=== PATIENT | male | born 1970 | race Caucasian/White ===

== ENCOUNTER 2017-09-02 03:16 | Observation (INO) | payer MEDICAID ==
--- NOTE | 2017-09-02 03:48 | EDPHY ---
H & P Stated Complaint: cirrhosis, Time Seen by Provider: 09/02/17 03:39 HPI/ROS: Chief Complaint: Abdominal pain, distension, shortness of breath HPI: 47-year-old male arrived in [place] yesterday afternoon. He states that he is in the process of moving here from [place]. He was diagnosed with end- stage liver disease secondary to cirrhosis about 3 months ago. He has moved here to live with his parents. His mother has arranged for him to see a liver specialist in [place] next week. He woke up this morning with worsening abdominal distension and pain and shortness of breath similar to prior episodes. He says that home in [place] he was getting a therapeutic paracentesis about every 3 days. He has not arranged for any local care other then follow up with a liver specialist in [place]. He does not know where that is or the name of the doctor. He denies any fevers or chills. He does have a mild cough. No chest pain. No nausea or vomiting. ROS: 10 point Review of Systems is negative except as noted in the HPI. PMH: End-stage liver disease Social History: No smoking, no alcohol Family History: non-contributory Physical Exam: Gen: Awake, Alert, No Distress HEENT: Nose: no rhinorrhea Eyes: PERRLA, EOMI Mouth: Moist mucosa Neck: Supple, no JVD Chest: nontender, lungs clear to auscultation Heart: S1, S2 normal, no murmur Abd: Soft, distended, ascitic, moderate diffuse tenderness, no guarding Back: no CVA tenderness, no midline tenderness Ext: no edema, non-tender Skin: no rash Neuro: CN II-XII intact, Sensation grossly intact, Strength 5/5 in bilateral upper and lower extremities - Medical/Surgical History Hx Asthma: No Hx Chronic Respiratory Disease: No Hx Diabetes: No Hx Cardiac Disease: No Hx Renal Disease: No Hx Cirrhosis: Yes Hx Alcoholism: Yes Hx HIV/AIDS: No Hx Splenectomy or Spleen Trauma: No Other PMH: cirrhosis - Social History Smoking Status: Never smoked Constitutional: Initial Vital Signs Temperature (C) 36.9 C 09/02/17 03:19 Heart Rate 90 09/02/17 03:19 Respiratory Rate 24 H 09/02/17 03:19 Blood Pressure 104/62 09/02/17 03:19 O2 Sat (%) 97 09/02/17 03:19 O2 Delivery Mode Room Air Allergies/Adverse Reactions: No Known Allergies Allergy (Unverified 09/02/17 03:18) Home Medications: Medication Instructions Recorded Cipro 09/02/17 LACTULOSE 09/02/17 Medical Decision Making - Data Points Laboratory Results: Laboratory Results 09/02/17 03:35 09/02/17 03:35 09/02/17 09/02/17 09/02/17 03:35 03:35 03:35 WBC 7.73 10^3/uL 10^3/uL (3.80-9.50) RBC 2.45 10^6/uL L 10^6/uL (4.40-6.38) Hgb 7.4 g/dL L g/dL (13.7-17.5) Hct 22.2 % L % (40.0-51.0) MCV 90.6 fL fL (81.5-99.8) MCH 30.2 pg pg (27.9-34.1) MCHC 33.3 g/dL g/dL (32.4-36.7) RDW 20.8 % H % (11.5-15.2) Plt Count 141 10^3/uL L 10^3/uL (150-400) MPV 10.5 fL fL (8.7-11.7) Neut % (Auto) 54.3 % % (39.3-74.2) Lymph % (Auto) 25.1 % % (15.0-45.0) [place] % (Auto) 15.8 % H % (4.5-13.0) Eos % (Auto) 2.8 % % (0.6-7.6) Baso % (Auto) 0.8 % % (0.3-1.7) Nucleat RBC Rel Count 0.0 % % (0.0-0.2) Absolute Neuts (auto) 4.20 10^3/uL 10^3/uL (1.70-6.50) Absolute Lymphs (auto) 1.94 10^3/uL 10^3/uL (1.00-3.00) Absolute Monos (auto) 1.22 10^3/uL H 10^3/uL (0.30-0.80) Absolute Eos (auto) 0.22 10^3/uL 10^3/uL (0.03-0.40) Absolute Basos (auto) 0.06 10^3/uL 10^3/uL (0.02-0.10) Absolute Nucleated RBC 0.00 10^3/uL 10^3/uL (0-0.01) Immature Gran % 1.2 % H % (0.0-1.1) Immature Gran # 0.09 10^3/uL 10^3/uL (0.00-0.10) Platelet Estimate DECREASED L (ADEQ) Hypochromasia 1+ H Target Cells 1+ H Oval Macrocytes 3+ H PT 20.2 SEC H SEC (12.0-15.0) INR 1.71 H (0.83-1.16) APTT 40.1 SEC H SEC (23.0-38.0) Sodium 128 mEq/L L mEq/L (135-145) Potassium 4.2 mEq/L mEq/L (3.3-5.0) Chloride 97 mEq/L mEq/L (97-110) Carbon Dioxide 24 mEq/l mEq/l (22-31) Anion Gap 7 mEq/L L mEq/L (8-16) BUN 31 mg/dL H mg/dL (7-23) Creatinine 1.7 mg/dL H mg/dL (0.7-1.3) Estimated GFR 44 Glucose 112 mg/dL H mg/dL (70-100) Calcium 7.7 mg/dL L mg/dL (8.5-10.4) Total Bilirubin 3.9 mg/dL H mg/dL (0.1-1.4) Conjugated Bilirubin 2.8 mg/dL H mg/dL (0.0-0.5) Unconjugated Bilirubin 1.1 mg/dL mg/dL (0.0-1.1) AST 101 IU/L H IU/L (17-59) ALT 58 IU/L IU/L (21-72) Alkaline Phosphatase 248 IU/L H IU/L (38-126) Total Protein 5.9 g/dL L g/dL (6.3-8.2) Albumin 2.7 g/dL L g/dL (3.5-5.0) Lipase 452 IU/L H IU/L (23-300) Departure - Departure Disposition: [facility] Acute Clinical Impression: Ascites, End stage liver disease, Anemia, Renal insufficiency Condition: Fair
[2017-09-02 04:34] LABS: INR 1.71 (0.83-1.16); PROTIME(PATIENT) 20.2 SEC (12.0-15.0)
[2017-09-02 04:38] LABS: PLATELET COUNT 141 10^3/uL (150-400)
[2017-09-02] MEDS ORDERED: ONDANSETRON 4 MG/2 ML VIAL IVP PRN (05:24)
[2017-09-02] MEDS ORDERED: ACETAMINOPHEN 325 MG TAB PO PRN (05:24)
[2017-09-02] MEDS ORDERED: ONDANSETRON DISINTEGRATING 4 MG TAB PO PRN (05:24)
--- NOTE | 2017-09-02 06:20 | PDGENHP ---
History and Physical - Chief Complaint Ascites - History of Present Illness 47 yo M w/ hx of alcoholic cirrhosis presents with large volume ascites. The patient arrived in [place] from [place] last night. He went home and ate a frozen pizza. At around 3 AM he noted discomfort from large volume ascites so he came to the ED. The patient is a very poor historian and is unable to tell me many of the details of his medical history. He does, however, have excellent records with him and I will attempt to summarize those below. Per D/C summary dated 08/28/17 from [facility]: - Patient last admitted there from 08/18 through 08/28. He was treated for recurrent ascites, DARRIUS, hyponatremia, and LLE cellulitis. He also underwent a full transplant evaluation including: - Nutrition counseling (claims he is following a low sodium diet) - R/L heart cath that were essentially normal aside from mildly elevated filling pressures - TTE showing hyperdynamic LV - RUQ U/S w/ cirrhosis but no evidence of mass - Negative for Hep A/B/C, HIV, CMV/EBV, VZV, LUZ MARINA, SMA, Qant, MMR, RPR - AFP WNL Despite this encouraging work-up the patient was denied transplant listing due to psychosocial reasons (poor social support in [place] and last drink ~6 weeks ago). At the time of discharge his MELD-Na score was 30. Of note, his diuretics are being held due to DARRIUS. He is moving to [place] to live with his parents in [place] and hopefully establish care with [facility] hepatology service. Case discussed with ED physician Dr. Cabrera. History Information - Allergies/Home Medication List Allergies/Adverse Reactions: No Known Allergies Allergy (Unverified 09/02/17 03:18) Home Medications: Cipro 09/02/17 [Last Taken Unknown] LACTULOSE 09/02/17 [Last Taken Unknown] I have personally reviewed and updated: family history, medical history - Past Medical History Additional medical history: ETOH cirrhosis - Surgical History Reports: no pertinent surgical hx - Family History Positive for: cancer - Social History Smoking Status: Never smoked Review of Systems Review of Systems: ROS: 10pt was reviewed & negative except for what was stated in HPI & below Physical Exam Physical Exam: Temp Pulse Resp BP Pulse Ox 36.9 C 83 19 124/78 H 96 09/02/17 03:19 09/02/17 05:37 09/02/17 05:37 09/02/17 05:37 09/02/17 05:37 Constitutional: no apparent distress, obese Eyes: PERRL, EOMI Ears, Nose, Mouth, Throat: moist mucous membranes, no oral mucosal ulcers Cardiovascular: regular rate and rhythym, no murmur, rub, or gallop, edema (3+ b /l JANELLE to upper shins) Respiratory: no respiratory distress, clear to auscultation Gastrointestinal: normoactive bowel sounds, ascites, distension, No tenderness Skin: warm, normal color Musculoskeletal: full muscle strength, no muscle tenderness Neurologic: AAOx3, CN II-XII Intact Psychiatric: interacting appropriately, not anxious Lab Data & Imaging Review 09/02/17 03:35 09/02/17 03:35 WBC 7.73 10^3/uL (3.80-9.50) 09/02/17 03:35 RBC 2.45 10^6/uL (4.40-6.38) L 09/02/17 03:35 Hgb 7.4 g/dL (13.7-17.5) L 09/02/17 03:35 Hct 22.2 % (40.0-51.0) L 09/02/17 03:35 MCV 90.6 fL (81.5-99.8) 09/02/17 03:35 MCH 30.2 pg (27.9-34.1) 09/02/17 03:35 MCHC 33.3 g/dL (32.4-36.7) 09/02/17 03:35 RDW 20.8 % (11.5-15.2) H 09/02/17 03:35 Plt Count 141 10^3/uL (150-400) L 09/02/17 03:35 MPV 10.5 fL (8.7-11.7) 09/02/17 03:35 Neut % (Auto) 54.3 % (39.3-74.2) 09/02/17 03:35 Lymph % (Auto) 25.1 % (15.0-45.0) 09/02/17 03:35 [place] % (Auto) 15.8 % (4.5-13.0) H 09/02/17 03:35 Eos % (Auto) 2.8 % (0.6-7.6) 09/02/17 03:35 Baso % (Auto) 0.8 % (0.3-1.7) 09/02/17 03:35 Nucleat RBC Rel Count 0.0 % (0.0-0.2) 09/02/17 03:35 Absolute Neuts (auto) 4.20 10^3/uL (1.70-6.50) 09/02/17 03:35 Absolute Lymphs (auto) 1.94 10^3/uL (1.00-3.00) 09/02/17 03:35 Absolute Monos (auto) 1.22 10^3/uL (0.30-0.80) H 09/02/17 03:35 Absolute Eos (auto) 0.22 10^3/uL (0.03-0.40) 09/02/17 03:35 Absolute Basos (auto) 0.06 10^3/uL (0.02-0.10) 09/02/17 03:35 Absolute Nucleated RBC 0.00 10^3/uL (0-0.01) 09/02/17 03:35 Immature Gran % 1.2 % (0.0-1.1) H 09/02/17 03:35 Immature Gran # 0.09 10^3/uL (0.00-0.10) 09/02/17 03:35 Platelet Estimate DECREASED (ADEQ) L 09/02/17 03:35 Hypochromasia 1+ H 09/02/17 03:35 Target Cells 1+ H 09/02/17 03:35 Oval Macrocytes 3+ H 09/02/17 03:35 PT 20.2 SEC (12.0-15.0) H 09/02/17 03:35 INR 1.71 (0.83-1.16) H 09/02/17 03:35 APTT 40.1 SEC (23.0-38.0) H 09/02/17 03:35 Sodium 128 mEq/L (135-145) L 09/02/17 03:35 Potassium 4.2 mEq/L (3.3-5.0) 09/02/17 03:35 Chloride 97 mEq/L (97-110) 09/02/17 03:35 Carbon Dioxide 24 mEq/l (22-31) 09/02/17 03:35 Anion Gap 7 mEq/L (8-16) L 09/02/17 03:35 BUN 31 mg/dL (7-23) H 09/02/17 03:35 Creatinine 1.7 mg/dL (0.7-1.3) H 09/02/17 03:35 Estimated GFR 44 09/02/17 03:35 Glucose 112 mg/dL (70-100) H 09/02/17 03:35 Calcium 7.7 mg/dL (8.5-10.4) L 09/02/17 03:35 Total Bilirubin 3.9 mg/dL (0.1-1.4) H 09/02/17 03:35 Conjugated Bilirubin 2.8 mg/dL (0.0-0.5) H 09/02/17 03:35 Unconjugated Bilirubin 1.1 mg/dL (0.0-1.1) 09/02/17 03:35 AST 101 IU/L (17-59) H 09/02/17 03:35 ALT 58 IU/L (21-72) 09/02/17 03:35 Alkaline Phosphatase 248 IU/L (38-126) H 09/02/17 03:35 Total Protein 5.9 g/dL (6.3-8.2) L 09/02/17 03:35 Albumin 2.7 g/dL (3.5-5.0) L 09/02/17 03:35 Lipase 452 IU/L (23-300) H 09/02/17 03:35 Assessment & Plan Assessment: 47 yo M w/ alcoholic cirrhosis presents with large volume ascites. Plan: 1. Acutely decompensated alcoholic cirrhosis - Decompensated per large volume ascites. Patient has required at least 4 large volume paracenteses over the last month. The situation is exacerbated by his diuretics being held in the setting of ongoing DARRIUS. He completed transplant evaluation in [place] but was denied due to psychosocial reasons and the complicating factor of him being a [employer]'s witness. He arrived in [place] on the day prior to admission in order to hopefully establish care with [facility] hepatology. His MELD-Na today is 28 compared to 30 at on 08/28 at time of discharge in [place]. From this standpoint his liver dysfunction is stable. - Will order therapeutic paracentesis for this morning - Recent RUQ U/S without evidence of mass, latest AFP negative - Needs EGD for variceal screening in the future - Will continue Ciprofloxacin for SBP prophylaxis noting very high risk ( decompensated cirrhosis, recurrent paracentesis, DARRIUS) - Continue lactulose; not currently on Rifaximin. Per records patient has no hx of HE so will not start now 2. DARRIUS - Creatinine 1.7 on admission, this is increased from his reported baseline value of 1. At time of discharge in [place] on 08/28, however, his serum Cr was 1.6. The relative stability of this makes HRS (at least Type I) unlikely. I suspect he is intravascularly volume deplete noting large volume in abdomen. - Will need aggressive albumin after paracentesis - Avoid nephrotoxins, renally dose medications - Continue to hold diuretics in the short term 3. Anemia - Suspect largely driven by his liver disease and poor nutritional status. The patient is a Jehova's witness and will not accept blood products. - Monitor CBC 4. Hyponatremia - Likely hypervolemic and driven by liver disease. 5. Thrombocytopenia - 2/2 portal HTN. Avoid blood thinners. 6. Coagulopathy - 2/2 liver disease. 7. Recent LLE cellulitis - Finished course of Keflex and doxycycline on 08.29; no evidence of active infection currently. Diet - NPO pending para to avoid worsening abdominal discomfort Code - Full Ppx - SCDs Dispo - Admit under observation status
[2017-09-02] MEDS: CIPROFLOXACIN 500 MG TAB PO SCH (08:32)
[2017-09-02] MEDS: LACTULOSE 20 GM/30 ML UDCUP PO SCH ×3 (08:32→22:51)
[2017-09-02] MEDS ORDERED: ALBUMIN 25% 200 ML IV ONE ×2 (11:11→14:30)
[2017-09-02] MEDS: prednisoLONE 15 MG/5 ML ORAL UD LIQ PO SCH (14:43)
[2017-09-02] MEDS: THIAMINE HCL 100 MG TAB PO SCH (14:43)
[2017-09-02] MEDS: PANTOPRAZOLE SODIUM 40 MG TAB PO SCH (14:43)
[2017-09-02] MEDS ORDERED: LIDOCAINE 1% 300 MG/30 ML SDV ONE (15:27)
[2017-09-02] MEDS ORDERED: ALBUMIN 25% 100 ML IV ONE (17:52)
--- NOTE | 2017-09-02 17:52 | PDRADPN ---
Radiology Procedure Note Date of Procedure: 09/02/17 Radiologist: Taylor Goodrich Pre-op Diagnosis: ESLD Post-op Diagnosis: same Indication: large volume ascites Procedure: paracentesis Finding(s): 7.5 L removed. Sent for requested labs. Inf/Abcess present in the surg proc area at time of surgery?: No
[2017-09-02] MEDS ORDERED: TEMAZEPAM 15 MG CAP PO ONE (20:20)
[2017-09-03] MEDS: THIAMINE HCL 100 MG TAB PO SCH (08:49)
[2017-09-03] MEDS: prednisoLONE 15 MG/5 ML ORAL UD LIQ PO SCH (08:50)
[2017-09-03] MEDS: CIPROFLOXACIN 500 MG TAB PO SCH (08:50)
[2017-09-03] MEDS: PANTOPRAZOLE SODIUM 40 MG TAB PO SCH (08:50)
--- NOTE | 2017-09-03 09:56 | HOSPPROG ---
Hospitalist Progress Note Assessment/Plan: 47 yo M w cirrhosis, ascites s/p paracentesis home today see dc summary Subjective: s/p thpracentesis Objective: Vital Signs Temp Pulse Resp BP Pulse Ox 36.6 C 89 17 113/67 94 09/03/17 07:22 09/03/17 07:22 09/03/17 07:22 09/03/17 07:22 09/03/17 07:22 Microbiology 09/02/17 17:10 Gram Stain - Final Peritoneal Fluid - Aspirate Laboratory Results 09/03/17 05:00 09/02/17 09/03/17 09/04/17 05:59 05:59 05:59 Intake Total 950 320 Balance 950 320 PT 20.2 SEC (12.0-15.0) H 09/02/17 03:35 INR 1.71 (0.83-1.16) H 09/02/17 03:35 - Physical Exam Constitutional: no apparent distress, appears nourished Eyes: PERRL, icteric sclera Ears, Nose, Mouth, Throat: moist mucous membranes, hearing normal Cardiovascular: regular rate and rhythym, no murmur, rub, or gallop Respiratory: no respiratory distress, no rales or rhonchi Gastrointestinal: normoactive bowel sounds, soft, non-tender abdomen, ascites Genitourinary: no bladder fullness Skin: warm, normal color Musculoskeletal: full muscle strength Neurologic: AAOx3 ICD10 Worksheet Patient Problems: Problems Problem Status Onset Anemia Acute Ascites Acute End stage liver disease Acute Renal insufficiency Acute
--- NOTE | 2017-09-03 10:58 | GDS ---
[f rep st] DISCHARGE SUMMARY DISCHARGE DIAGNOSES: 1. Cirrhosis with ascites. 2. Alcoholism. 3. Chronic kidney injury, now resolved. 4. Anemia. 5. Religion. HOSPITAL COURSE: Please see admission history and physical by Dr. Artemio Serrato. Patient pre sented with increasing ascites and difficulty breathing. He underwent the paracentesis. 7.5 L were removed. Labs were consistent with cirrhosis without evidence of SBP. The patient was given albumin with subsequent improvement in his creatinine. He was discharged on Lasix, spironolactone, as well as continuation of prednisolone, omeprazole, iron, and lactulose. He was not encephalopathic while h ere. The patient previously been seen by the [facility] liver transplant team. The details gunnar t workup are nicely summarized by Dr. Artemio Serrato's evaluation. /[id number]/MODL
[2017-09-03 11:15] VITALS: BP 113/66
--- NOTE | 2017-09-03 11:41 | ASMTCMCOM ---
CM Note CM Note Notes: Pt to Dc today. Pt presented with ascites and underwent paracentesis. Per Dr Ulloa's repot, pt denied liver transplant listing in [place] for psychosocial reasons, among them poor support system. Pt has moved to [place] to live ith parents and hopefully establish care at [facility]. Pt given support packet for alcohol cessation resources in the area. No DC needs. Date Signed: 09/03/2017 11:41 AM Electronically Signed By:Reyna Mccoy LCSW
--- NOTE | 2017-09-03 11:47 | ASMTCMCOM ---
CM Note CM Note Notes: Pt ready for DC today. Patient admitted with aspiration PNA. He has a complex medical history notable fo CVAs w residual L sided weakness. SPoke with Kyung yesterday about DC plan. She has told by MD about the danger of further aspiration PNA if he continues to eat. She feels that food intake helps his quality of life and that he would decline if only fed through tube. Asked RN to have speech come discuss his diet and best food to eat. Kyung ([phone]) states that patient is well supported at home with 24/7 care. He receives [facility] services through [facility] (this includes home visits from physicians) and unskilled services through Medicaid's HCBS program. His [facility] orthopaedic nurse is Shanika Reyes. Per patient's , she does not need any add'l services at this time. Date Signed: 09/03/2017 11:46 AM Electronically Signed By:Reyna Mccoy LCSW
== END 2017-09-03 13:27 | disposition home or self-care (01) ==
LOC: F1N 06:30
PROVIDERS: ADMIT Student in an Organized Health Care Education/Training Program; ATTEND Student in an Organized Health Care Education/Training Program
PROC: 0W9G3ZZ Drainage of Peritoneal Cavity, Percutaneous Approach (ICD-10-PCS; principal; 2017-09-02)
DX: K70.31 Alcoholic cirrhosis of liver with ascites (principal); E87.1 Hypo-osmolality and hyponatremia; D64.9 Anemia, unspecified; D68.9 Coagulation defect, unspecified; N17.9 Acute kidney failure, unspecified
CPT/HCPCS: 49083; 99285; G0378; J7510; P9047

== ENCOUNTER 2017-09-05 16:55 | Observation (INO) | payer MEDICAID ==
--- NOTE | 2017-09-05 17:45 | EDPHY ---
H & P Stated Complaint: c/o abd bloat/discomfort since last pm, had ascites drained 2 days ago Time Seen by Provider: 09/05/17 17:25 HPI/ROS: CHIEF COMPLAINT: Recurrent ascites HISTORY OF PRESENT ILLNESS: The patient presents to the ED with a rapid accumulation of his ascites following a recent hospitalization and large volume paracentesis. The patient has been bothered by some aphthous type ulcers on his tongue. He has been drinking large volumes of water since his discharge. The patient was evaluated at the transplant service in [place] and apparently has been denied a transplant secondary to ongoing alcohol use and poor social support. He is currently living in [place] with his family. The patient denies any fever. He denies any melena or hematemesis. The patient complains of moderate abdominal pain and distention. REVIEW OF SYSTEMS: A comprehensive 10 point review of systems is otherwise negative aside from elements mentioned in the history of present illness. Source: Patient Exam Limitations: No limitations - Medical/Surgical History Hx Asthma: No Hx Chronic Respiratory Disease: No Hx Diabetes: No Hx Cardiac Disease: No Hx Renal Disease: No Hx Cirrhosis: Yes Hx Alcoholism: Yes Hx HIV/AIDS: No Hx Splenectomy or Spleen Trauma: No Other PMH: cirrhosis, LE cellulitis - Social History Smoking Status: Never smoked - Physical Exam Exam: General Appearance: Alert, no distress Eyes: Pupils equal and round no pallor or injection ENT, Mouth: Mucous membranes moist Respiratory: There are no retractions, lungs are clear to auscultation Cardiovascular: Regular rate and rhythm Gastrointestinal: Protuberant, fluid wave, no peritoneal signs Neurological: A&O, normal motor function, normal sensory exam, normal cranial nerves Skin: Warm and dry, no rashes Musculoskeletal: Neck is supple nontender Extremities: symmetrical, full range of motion Psychiatric: Patient is oriented X 3, there is no agitation Constitutional: Initial Vital Signs Temperature (C) 37 C 09/05/17 16:58 Heart Rate 109 H 09/05/17 16:58 Respiratory Rate 18 09/05/17 16:58 Blood Pressure 135/72 H 09/05/17 16:58 O2 Sat (%) 94 09/05/17 16:58 O2 Delivery Mode Room Air Allergies/Adverse Reactions: No Known Allergies Allergy (Verified 09/05/17 17:05) Home Medications: Medication Instructions Recorded Ciprofloxacin [Cipro] 500 mg PO DAILY 09/02/17 Ferrous Sulfate [Ferrous Sulf 325 325 mg PO DAILY 09/02/17 MG (*)] Folic Acid [Folic Acid 1 MG (*)] 1 mg PO DAILY 09/02/17 Lactulose 10 gm PO PRN PRN 09/02/17 Omeprazole 40 mg PO DAILY PRN 09/02/17 Thiamine HCl 100 mg PO DAILY 09/02/17 Furosemide [Lasix 20 MG (*)] 20 mg PO DAILY #30 tab 09/03/17 Spironolactone 25 mg PO DAILY #30 tablet 09/03/17 Multivitamins [Multivitamin (*)] 1 each PO BID 09/05/17 Medical Decision Making ED Course/Re-evaluation: The patient presents to the ED with recurrent ascites in the setting of excess water intake over the past several days. The patient is afebrile and has no peritoneal signs on exam. He will require admission to the hospital for a repeat paracentesis. CBC and metabolic panel are currently pending. Consultation was made with Dr. Roy from the hospitalist service who will admit the patient. I reviewed the patient's laboratory studies. He has no evidence of a significant leukocytosis, metabolic derangement or recurrent renal failure. The patient will be admitted for observation and therapeutic paracentesis. Differential Diagnosis: Differential diagnosis considered includes SBP, abdominal ascites, renal failure , metabolic derangement - Data Points Laboratory Results: Laboratory Results 09/05/17 17:50 09/05/17 17:50 09/05/17 09/05/17 17:50 17:50 WBC 8.82 10^3/uL 10^3/uL (3.80-9.50) RBC 2.28 10^6/uL L 10^6/uL (4.40-6.38) Hgb 6.8 g/dL L g/dL (13.7-17.5) Hct 20.5 % L % (40.0-51.0) MCV 89.9 fL fL (81.5-99.8) MCH 29.8 pg pg (27.9-34.1) MCHC 33.2 g/dL g/dL (32.4-36.7) RDW 20.4 % H % (11.5-15.2) Plt Count 132 10^3/uL L 10^3/uL (150-400) MPV 10.5 fL fL (8.7-11.7) Neut % (Auto) 56.7 % % (39.3-74.2) Lymph % (Auto) 23.6 % % (15.0-45.0) [place] % (Auto) 15.3 % H % (4.5-13.0) Eos % (Auto) 2.7 % % (0.6-7.6) Baso % (Auto) 0.7 % % (0.3-1.7) Nucleat RBC Rel Count 0.0 % % (0.0-0.2) Absolute Neuts (auto) 5.00 10^3/uL 10^3/uL (1.70-6.50) Absolute Lymphs (auto) 2.08 10^3/uL 10^3/uL (1.00-3.00) Absolute Monos (auto) 1.35 10^3/uL H 10^3/uL (0.30-0.80) Absolute Eos (auto) 0.24 10^3/uL 10^3/uL (0.03-0.40) Absolute Basos (auto) 0.06 10^3/uL 10^3/uL (0.02-0.10) Absolute Nucleated RBC 0.00 10^3/uL 10^3/uL (0-0.01) Immature Gran % 1.0 % % (0.0-1.1) Immature Gran # 0.09 10^3/uL 10^3/uL (0.00-0.10) Platelet Estimate DECREASED L (ADEQ) Polychromasia 1+ H Smear Review By Pending Sodium 136 mEq/L mEq/L (135-145) Potassium 4.6 mEq/L mEq/L (3.3-5.0) Chloride 101 mEq/L mEq/L (97-110) Carbon Dioxide 25 mEq/l mEq/l (22-31) Anion Gap 10 mEq/L mEq/L (8-16) BUN 31 mg/dL H mg/dL (7-23) Creatinine 1.4 mg/dL H mg/dL (0.7-1.3) Estimated GFR 55 Glucose 101 mg/dL H mg/dL (70-100) Calcium 8.0 mg/dL L mg/dL (8.5-10.4) Departure - Departure Disposition: [facility] Acute Clinical Impression: End stage liver disease, Ascites Condition: Good
[2017-09-05 18:02] LABS: PLATELET COUNT 132 10^3/uL (150-400)
--- NOTE | 2017-09-05 18:16 | PDGENHP ---
History and Physical - Chief Complaint Bloating - History of Present Illness 47 yo M w/ hx of alcoholic cirrhosis presents with large volume ascites. Patient was discharged from [facility] on 09/03/17 after undergoing a large volume (7.5L) paracentesis. The patient arrived in [place] from [place] last last week. He was hospitalized 08/18 through 08/28 at [facility] where he was evaluated for liver transplant. Per D/C summary dated 08/28/17 from [facility]: - Patient last admitted there from 08/18 through 08/28. He was treated for recurrent ascites, DARRIUS, hyponatremia, and LLE cellulitis. He also underwent a full transplant evaluation including: - Nutrition counseling (claims he is following a low sodium diet) - R/L heart cath that were essentially normal aside from mildly elevated filling pressures - TTE showing hyperdynamic LV - RUQ U/S w/ cirrhosis but no evidence of mass - Negative for Hep A/B/C, HIV, CMV/EBV, VZV, LUZ MARINA, SMA, Qant, MMR, RPR - AFP WNL Ultimately during his hospital stay at [facility] he was thought to not be a transplant candidate due to his recent history of alcohol use as well as lack of social support in [place]. This is why he has moved back to [place] so he could live with his parents and further pursue liver transplantation. Since discharged from [facility] on 09/03/2017 he reports having painful sores on both sides of his tongue. He has been drinking copious amounts of water. He denies any alcohol use and has been sober for 9 weeks. Over the past 2 days he has had increasing abdominal swelling. He denies any fevers or chills. Abdominal swelling is associated with some shortness of breath. He also reports some leaking from is paracentesis site. History Information - Allergies/Home Medication List Allergies/Adverse Reactions: No Known Allergies Allergy (Verified 09/05/17 17:05) Home Medications: Ciprofloxacin [Cipro] 500 mg PO DAILY 09/02/17 [Last Taken 09/01/17] Ferrous Sulfate [Ferrous Sulf 325 MG (*)] 325 mg PO DAILY 09/02/17 [Last Taken 09/02/17] Folic Acid [Folic Acid 1 MG (*)] 1 mg PO DAILY 09/02/17 [Last Taken 09/02/17] Lactulose 10 gm PO PRN PRN 09/02/17 [Last Taken Unknown] Omeprazole 40 mg PO DAILY 09/02/17 [Last Taken 09/01/17] Thiamine HCl 100 mg PO DAILY 09/02/17 [Last Taken 09/02/17] I have personally reviewed and updated: family history, medical history, social history, surgical history - Past Medical History Additional medical history: ETOH cirrhosis - Surgical History Reports: no pertinent surgical hx - Family History Positive for: cancer - Social History Smoking Status: Never smoked Alcohol Use: Other (Sober for 9 weeks) Review of Systems Review of Systems: ROS: 10pt was reviewed & negative except for what was stated in HPI & below Physical Exam Physical Exam: Temp Pulse Resp BP Pulse Ox 37 C 109 H 18 135/72 H 94 09/05/17 16:58 09/05/17 16:58 09/05/17 16:58 09/05/17 16:58 09/05/17 16:58 Constitutional: no apparent distress, appears nourished, not in pain, chronically ill appearing Eyes: PERRL, EOMI, icteric sclera Ears, Nose, Mouth, Throat: moist mucous membranes, hearing normal, ears appear normal, no oral mucosal ulcers, other (Ulcers on both lateral aspects of his tongue) Cardiovascular: regular rate and rhythym, no murmur, rub, or gallop, No edema Respiratory: no respiratory distress, no rales or rhonchi, clear to auscultation , reduced air movement (Bilateral bases) Gastrointestinal: normoactive bowel sounds, soft, non-tender abdomen, no palpable masses, ascites, distension Genitourinary: no bladder fullness, no bladder tenderness Skin: warm, other (Mild jaundice) Musculoskeletal: full muscle strength, no muscle tenderness, normal joint ROM, no joint effusions Neurologic: AAOx3, CN II-XII Intact, other (Slight tremor), No facial droop Psychiatric: interacting appropriately, not anxious, not encephalopathic, thought process linear Lymph, Heme, Immunologic: no cervical LAD, no supraclavicular LAD Lab Data & Imaging Review 09/05/17 17:50 09/05/17 17:50 WBC 8.82 10^3/uL (3.80-9.50) 09/05/17 17:50 RBC 2.28 10^6/uL (4.40-6.38) L 09/05/17 17:50 Hgb 6.8 g/dL (13.7-17.5) L 09/05/17 17:50 Hct 20.5 % (40.0-51.0) L 09/05/17 17:50 MCV 89.9 fL (81.5-99.8) 09/05/17 17:50 MCH 29.8 pg (27.9-34.1) 09/05/17 17:50 MCHC 33.2 g/dL (32.4-36.7) 09/05/17 17:50 RDW 20.4 % (11.5-15.2) H 09/05/17 17:50 Plt Count 132 10^3/uL (150-400) L 09/05/17 17:50 MPV 10.5 fL (8.7-11.7) 09/05/17 17:50 Neut % (Auto) 56.7 % (39.3-74.2) 09/05/17 17:50 Lymph % (Auto) 23.6 % (15.0-45.0) 09/05/17 17:50 [place] % (Auto) 15.3 % (4.5-13.0) H 09/05/17 17:50 Eos % (Auto) 2.7 % (0.6-7.6) 09/05/17 17:50 Baso % (Auto) 0.7 % (0.3-1.7) 09/05/17 17:50 Nucleat RBC Rel Count 0.0 % (0.0-0.2) 09/05/17 17:50 Absolute Neuts (auto) 5.00 10^3/uL (1.70-6.50) 09/05/17 17:50 Absolute Lymphs (auto) 2.08 10^3/uL (1.00-3.00) 09/05/17 17:50 Absolute Monos (auto) 1.35 10^3/uL (0.30-0.80) H 09/05/17 17:50 Absolute Eos (auto) 0.24 10^3/uL (0.03-0.40) 09/05/17 17:50 Absolute Basos (auto) 0.06 10^3/uL (0.02-0.10) 09/05/17 17:50 Absolute Nucleated RBC 0.00 10^3/uL (0-0.01) 09/05/17 17:50 Immature Gran % 1.0 % (0.0-1.1) 09/05/17 17:50 Immature Gran # 0.09 10^3/uL (0.00-0.10) 09/05/17 17:50 Assessment & Plan Assessment: This is a 47-year-old male with history of alcohol related end-stage liver disease presenting with: 1. Recurrence Ascites Plan: Will pursue repeat therapeutic paracentesis under ultrasound guidance Low sodium diet Fluid restrict Await chemistry panel 2. End stage liver disease Plan: Encouraged sobriety Outpatient follow-up with Transplant Team 3. Bilateral tongue ulcerations of unclear etiology Plan: Trial Magic mouthwash and consider topical steroids if not improving 4. Worsening normocytic anemia without signs of acute bleeding Plan: Monitor H&H Blood type and screen, defer transfusion given risks for transfusion associated circulatory overload PPI
[2017-09-05] MEDS ORDERED: LACTULOSE 20 GM/30 ML UDCUP PO PRN (19:41)
[2017-09-05] MEDS: MULTIVITAMINS 1 EACH TAB PO SCH (21:12)
[2017-09-05] MEDS: MBX SOLN 30 ML BOTTLE PO PRN (21:12)
[2017-09-05] MEDS ORDERED: traZODone 50 MG TAB PO SCH (22:15)
[2017-09-06] MEDS ORDERED: MELATONIN 3 MG TAB PO PRN (01:53)
[2017-09-06] MEDS ORDERED: CALCIUM CARBONATE 500 MG CHEWABLE TAB PO PRN (01:53)
[2017-09-06] MEDS: MBX SOLN 30 ML BOTTLE PO PRN ×2 (02:19→08:33)
[2017-09-06 04:25] LABS: PLATELET COUNT 120 10^3/uL (150-400)
[2017-09-06 04:56] LABS: INR 1.67 (0.83-1.16); PROTIME(PATIENT) 19.8 SEC (12.0-15.0)
[2017-09-06] MEDS: MULTIVITAMINS 1 EACH TAB PO SCH (08:33)
[2017-09-06] MEDS ORDERED: FUROSEMIDE 20 MG TAB PO SCH (09:00)
[2017-09-06] MEDS ORDERED: FERROUS SULFATE 325 MG TAB PO SCH (09:00)
[2017-09-06] MEDS ORDERED: CIPROFLOXACIN 500 MG TAB PO SCH (09:00)
[2017-09-06] MEDS ORDERED: SPIRONOLACTONE 25 MG TAB PO SCH (09:00)
[2017-09-06] MEDS ORDERED: PANTOPRAZOLE SODIUM 40 MG TAB PO PRN (09:00)
--- NOTE | 2017-09-06 10:28 | ASMTCMCOM ---
CM Note CM Note Notes: CM reviewed chart for D/C planning. Pt is a 47 y/o male with hx of alcohol cirrhosis who presented at the ED with large volume ascites.The Pt arrived in [place] from [place] last week. He was hospitalized 08/18 through 08/28 at [facility] where he was evaluated for liver transplant, in addition to being treated for recurrent ascites, DARRIUS, hypnoatremia and LLE cellulitis. During his hospital stay there it was determined he was not to be a transplant candidate due to his recent use of alcohol as well as his lack of support in [place]. He then moved back to [place] so he could live with his parents and further pursue liver transplantation. Pt was recently D/Kyle from [facility], 09/03/17, after undergoing a large volume parencentesis. He returned today with the ascites and painful sores on both sides of his tongue. He reports drinking large volumes of water with abdominal swelling and some SOB. He denies any alcohol use for the last 9 weeks. CM needs as yet undetermined. CM will follow. D/C Needs: TBD Date Signed: 09/06/2017 10:27 AM Electronically Signed By:Eleanor Adorno
[2017-09-06] MEDS ORDERED: LIDOCAINE 1% 300 MG/30 ML SDV ONE (13:50)
--- NOTE | 2017-09-06 13:56 | HOSPPROG ---
Hospitalist Progress Note Assessment/Plan: This is a 47-year-old male with history of alcohol related end-stage liver disease presenting with recurrent ascites. Awaiting paracentesis today. Will likely discharge after. 1. Recurrence Ascites Plan: Will pursue repeat therapeutic paracentesis under ultrasound guidance Low sodium diet Fluid restrict Await chemistry panel Increase diuretics 2. End stage liver disease Plan: Encouraged sobriety Outpatient follow-up with Transplant Team 3. Bilateral tongue ulcerations of unclear etiology Plan: Trial Magic mouthwash and consider topical steroids if not improving 4. Worsening normocytic anemia without signs of acute bleeding Plan: Monitor H&H He is a Evangelical and does not want a transfusion PPI Dispo: d/c likely today Subjective: no cp or sob. awaiting paracentesis Objective: Vital Signs Temp Pulse Resp BP Pulse Ox 37.0 C 97 14 127/79 H 95 09/06/17 11:22 09/06/17 11:22 09/06/17 11:22 09/06/17 11:22 09/06/17 11:22 Laboratory Results 09/06/17 03:30 09/06/17 03:50 09/05/17 09/06/17 09/07/17 05:59 05:59 05:59 Intake Total 1200 Output Total 750 Balance 450 PT 19.8 SEC (12.0-15.0) H 09/06/17 03:50 INR 1.67 (0.83-1.16) H 09/06/17 03:50 - Physical Exam Constitutional: no apparent distress Eyes: PERRL Ears, Nose, Mouth, Throat: moist mucous membranes, hearing normal Cardiovascular: regular rate and rhythym, No edema Respiratory: no respiratory distress, no rales or rhonchi, clear to auscultation Gastrointestinal: normoactive bowel sounds, distension Skin: warm Neurologic: AAOx3 Psychiatric: interacting appropriately, not anxious, not encephalopathic ICD10 Worksheet Patient Problems: Problems Problem Status Onset Ascites Acute End stage liver disease Acute Anemia Acute Renal insufficiency Acute
[2017-09-06] MEDS ORDERED: ALBUMIN 25% 100 ML IV ONE ×2 (15:54→15:56)
[2017-09-06 16:14] VITALS: BP 111/74
--- NOTE | 2017-09-06 16:26 | PDDCSUM ---
Discharge Summary Discharge Summary: This is a 47-year-old male with history of alcohol related end-stage liver disease presenting with recurrent ascites. He had paracentesis today. He has received Albumin. He wants to discharge and is ready for discharge. Diuretics will be increased. He will f/u with a PCP next week. 1. Recurrence Ascites 2. End stage liver disease Plan: Encouraged sobriety Outpatient follow-up with Transplant Team 3. Bilateral tongue ulcerations of unclear etiology Plan: Trial Magic mouthwash 4. Worsening normocytic anemia without signs of acute bleeding He is a Latter day and does not want a transfusion Exam: see Progress note from today meds: see med rec total time spent on discharge is 35 minutes
--- NOTE | 2017-09-06 16:27 | ASMTLACE ---
LACE Length of stay for Answers: Less than 1 day current admission Acuity / Level of Answers: No Care: Did the patient have an inpatient admission? Comorbidities - select Answers: Moderate or severe liver all that apply or renal disease # of Emergency department Answers: 1-2 visits in the last 6 months Social determinants Answers: History of substance abuse (ETOH, street drugs, prescription drugs, etc.) Score: 8 Date Signed: 09/06/2017 04:27 PM Electronically Signed By:Eleanor Adorno
--- NOTE | 2017-09-06 16:31 | ASDISCHSUM ---
Discharge Information Plan Status:Home with No Needs Medically Cleared to Leave: Discharge Date: CM D/C Disposition:Home, Routine, Self-Care ADT D/C Disposition:Home, Routine, Self-Care Projected Discharge Date: Transportation at D/C:Family Discharge Delay Reason: Follow-Up Date: Discharge Slot: Final Diagnosis: Placement Information Patient Contact Information Contact Name:CASANDRA Relationship:Mother Address:[address] [place] [address] Work Phone: City:[place] [facility] Phone: [facility]/Zip Code:[place] [address] Email: Financial Information Financial Class:Medicaid Primary Plan Desc:MEDDATA Primary Plan Number:[id number] Secondary Plan Desc: Secondary Plan Number: Assessment Information LACE LACE Length of stay for Answers: Less than 1 day current admission Acuity / Level of Answers: No Care: Did the patient have an inpatient admission? Comorbidities - select Answers: Moderate or severe liver all that apply or renal disease # of Emergency department Answers: 1-2 visits in the last 6 months Social determinants Answers: History of substance abuse (ETOH, street drugs, prescription drugs, etc.) Score: 8 Date Signed: 09/06/2017 04:27 PM Electronically Signed By:Eleanor Adorno [facility] Progress Note CM Note CM Note Notes: CM reviewed chart for D/C planning. Pt is a 47 y/o male with hx of alcohol cirrhosis who presented at the ED with large volume ascites.The Pt arrived in [place] from [place] last week. He was hospitalized 08/18 through 08/28 at [facility] where he was evaluated for liver transplant, in addition to being treated for recurrent ascites, DARRIUS, hypnoatremia and LLE cellulitis. During his hospital stay there it was determined he was not to be a transplant candidate due to his recent use of alcohol as well as his lack of support in [place]. He then moved back to [place] so he could live with his parents and further pursue liver transplantation. Pt was recently D/Kyle from [facility], 09/03/17, after undergoing a large volume parencentesis. He returned today with the ascites and painful sores on both sides of his tongue. He reports drinking large volumes of water with abdominal swelling and some SOB. He denies any alcohol use for the last 9 weeks. CM needs as yet undetermined. CM will follow. D/C Needs: TBD Date Signed: 09/06/2017 10:27 AM Electronically Signed By:Eleanor Adorno Case Management Discharge Plan Note Case Management Discharge Discharge Order Complete? Answers: Yes Followup Appointment 09/13/2017 03:10 PM Patient to Obtain Answers: via Family Medications Transportation Arranged Answers: Family/Friends Family Notified Answers: Yes Discharge Comments Notes: Pt has a [facility] appt [facility] for September 13 at 3:10PM. He has been given their address and phone number. Date Signed: 09/06/2017 04:29 PM Electronically Signed By:Eleanor Adorno Intervention Information
== END 2017-09-06 17:21 | disposition home or self-care (01) ==
LOC: F1N 18:43
PROVIDERS: ADMIT Family Medicine; ATTEND Family Medicine
PROC: 0D9W3ZZ Drainage of Peritoneum, Percutaneous Approach (ICD-10-PCS; principal; 2017-09-05)
DX: K70.31 Alcoholic cirrhosis of liver with ascites (principal); K14.0 Glossitis; D64.9 Anemia, unspecified
CPT/HCPCS: 49083; 96374; 99285; G0378; P9047

== ENCOUNTER → 2017-10-06 | Outpatient (CLI) | payer MEDICAID ==
[~2017-10-06] MED LIST: ALBUMIN 25% 100 ML SOLN IV ONE; LIDOCAINE 1% 300 MG/30 ML SDV ONE
== END ==
LOC: FIMAGING 09:38
PROVIDERS: ATTEND Family Medicine
PROC: 0W9G3ZX Drainage of Peritoneal Cavity, Percutaneous Approach, Diagnostic (ICD-10-PCS; principal; 2017-10-06)
DX: K70.31 Alcoholic cirrhosis of liver with ascites (principal); K72.90 Hepatic failure, unspecified without coma
CPT/HCPCS: P9047

== ENCOUNTER → 2017-10-16 | Outpatient (CLI) | payer MEDICAID | LOC: FIMAGING 13:39 | PROVIDERS: ATTEND Family Medicine | PROC: 0W9F3ZZ Drainage of Abdominal Wall, Percutaneous Approach (ICD-10-PCS; principal; 2017-10-16) | DX: R18.8 Other ascites (principal) | CPT/HCPCS: P9047 ==

== ENCOUNTER → 2017-10-24 | Outpatient (CLI) | payer MEDICAID ==
[~2017-10-24] MED LIST changes: -ALBUMIN 25% 100 ML SOLN IV ONE
== END ==
LOC: FIMAGING 11:26
PROC: 0W9G3ZZ Drainage of Peritoneal Cavity, Percutaneous Approach (ICD-10-PCS; principal; 2017-10-24)
DX: R18.8 Other ascites (principal)

== ENCOUNTER → 2017-11-15 | Outpatient (CLI) | payer MEDICAID | LOC: FIMAGING 11:41 | PROVIDERS: ATTEND Family Medicine | DX: K70.31 Alcoholic cirrhosis of liver with ascites (principal); K72.90 Hepatic failure, unspecified without coma ==

== ENCOUNTER 2017-12-02 15:18 | Emergency (ER) | payer MEDICAID ==
[2017-12-02] MEDS ORDERED: ONDANSETRON 4 MG/2 ML VIAL IVP ONE (16:02)
[2017-12-02] MEDS ORDERED: HYDROmorphONE/DILAUDID 2 MG/ML INJ IVP ONE (16:02)
--- NOTE | 2017-12-02 16:04 | EDPHY ---
H & P Stated Complaint: R ABD PAIN HX CIRRHOSIS Time Seen by Provider: 12/02/17 15:57 HPI/ROS: CHIEF COMPLAINT: Right lower quadrant pain HISTORY OF PRESENT ILLNESS: Patient is a 47-year-old obese man with a history of alcoholic cirrhosis and recurrent ascites who presents to the emergency department complaining of right lower quadrant pain. He a quit drinking this summer and moved here to from [place] to be with family. In [place] he was evaluated for liver transplant but found not to be a candidate because poor social support and continue drinking. 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 Lund does not feel that he will require a liver transplant. He went to have his scheduled paracentesis 2 weeks ago and was told that it was unnecessary. He has been feeling well until this morning when he developed right lower quadrant pain. No diarrhea. No vomiting. No fever. He does not have any history of abdominal surgeries. No testicular pain. No rash. He denies urinary symptoms. Severity: Severe Modifying factors: None REVIEW OF SYSTEMS: Constitutional: denies: chills, fever, recent illness, recent injury EENTM: denies: blurred vision, double vision, nose congestion Respiratory: denies: cough, shortness of breath Cardiac: denies: chest pain, irregular heart rate, lightheadedness, palpitations Gastrointestinal/Abdominal: See HPI Genitourinary: denies: dysuria, frequency, hematuria, pain Musculoskeletal: denies: joint pain, muscle pain Skin: denies: lesions, rash, jaundice, bruising Neurological: denies: headache, numbness, paresthesia, tingling, dizziness, weakness Hematologic/Lymphatic: denies: blood clots, easy bleeding, easy bruising Immunologic/allergic: denies: HIV/AIDS, transplant 10 systems reviewed and negative except as noted EXAM: GENERAL: Well-appearing, morbidly obese and in no acute distress. HEAD: Atraumatic, normocephalic. EYES: Pupils equal round and reactive to light, extraocular movements intact, sclera anicteric, conjunctiva are normal. ENT: TMs normal, nares patent, oropharynx clear without exudates. Moist mucous membranes. NECK: Normal range of motion, supple without lymphadenopathy or JVD. LUNGS: Breath sounds clear to auscultation bilaterally and equal. No wheezes rales or rhonchi. HEART: Regular rate and rhythm without murmurs, rubs or gallops. ABDOMEN: Moderate right lower quadrant/suprapubic pain,. No guarding, no rebound. No masses appreciated. BACK: No CVA tenderness, no spinal tenderness, step-offs or deformities EXTREMITIES: Normal range of motion, no pitting or edema. No clubbing or cyanosis. NEUROLOGICAL: Cranial nerves II through XII grossly intact. Normal speech, normal gait. 5/5 strength, normal movement in all extremities, normal sensation , normal reflexes PSYCH: Normal mood, normal affect. SKIN: Warm, dry, normal turgor, no visible rashes or lesions. Source: Patient Exam Limitations: No limitations - Personal History Current Tetanus Diphtheria and Acellular Pertussis (TDAP): Yes Tetanus Vaccine Date: <10 years - Medical/Surgical History Hx Asthma: No Hx Chronic Respiratory Disease: No Hx Diabetes: No Hx Cardiac Disease: No Hx Renal Disease: No Hx Cirrhosis: Yes Hx Alcoholism: Yes Hx HIV/AIDS: No Hx Splenectomy or Spleen Trauma: No Other PMH: Alcoholic cirrhosis, recurrent ascites, acute kidney injury, hyponatremia, LE cellulitis - Social History Smoking Status: Never smoked Alcohol Use: Sober Drug Use: None Constitutional: Initial Vital Signs Temperature (C) 36.8 C 12/02/17 15:21 Heart Rate 86 12/02/17 15:21 Respiratory Rate 18 12/02/17 15:21 Blood Pressure 123/84 H 12/02/17 15:21 O2 Sat (%) 99 12/02/17 15:21 O2 Delivery Mode Room Air Allergies/Adverse Reactions: No Known Allergies Allergy (Verified 12/02/17 15:19) Home Medications: Medication Instructions Recorded Spironolactone 100 mg PO DAILY #30 tablet 09/06/17 Lasix 12/02/17 Ondansetron Odt [Zofran Odt 4 mg 4 mg PO Q4 PRN #20 tab 12/02/17 (RX)] morphINE IR [morphINE IR 15 mg (*)] 15 mg PO Q3-4PRN PRN #10 tab 12/02/17 Medical Decision Making - Diagnostics Imaging Results: Imaging Impressions Abdomen CT 12/02/17 16:02 Impression: 1. Cirrhosis, splenomegaly, varices, and minimal ascites. 2. No CT evidence of appendicitis, abscess, or bowel obstruction. 3. Small fat-containing periumbilical abdominal wall hernia and left inguinal hernia. 4. Right lower lobe nonspecific, noncalcified 11 mm pulmonary nodule for which follow-up CT chest is recommended in 3 months to ensure stability or consider nuclear medicine PET scan imaging, if there are no prior studies for comparison , in order to exclude malignancy. 5. Nonobstructing right nephrolithiasis. No hydronephrosis. 6. Old mild compression fracture of the L1 vertebral body. Findings and recommendations discussed with emergency department physician, Pola Sapp MD at 1726 hours on December 02, 2017. Final report concurs with initial preliminary interpretation. Imaging: Discussed imaging studies w/ escalator installer Radiologist ED Course/Re-evaluation: 5:50 p.m. We discussed the patient's CT and lab results which are all very reassuring. He is currently pain free. His abdominal exam is benign. Dad is concerned because dad had appendicitis that initially was not seen on CT scan that ended up rupturing next day. We discussed this in length. They understand that we cannot completely rule this out but that now he is feeling and looking well and has normal testing. I advised them to return here or to the PCP in the next 24-48 hours for recheck. They understand agree with this plan. Also to return sooner if his symptoms worsen. Differential Diagnosis: Partial list of the Differential diagnosis considered include but were not limited to; appendicitis, kidney stone, urinary tract infection, ascites, hernia and although unlikely based on the history and physical exam, I also considered obstruction, volvulus, ischemia, peritonitis. I discussed these differential diagnoses and the plan with the patient as well as the usual and expected course. The patient understands that the diagnosis is provisional and that in medicine we are not always correct and that further workup is often warranted. Usual and customary warnings were given. All of the patient's questions were answered. The patient was instructed to return to the emergency department should the symptoms at all worsen or return, otherwise to followup with the physician as we discussed. - Data Points Laboratory Results: Laboratory Results 12/02/17 16:20 12/02/17 16:20 12/02/17 12/02/17 12/02/17 17:05 16:20 16:20 WBC RBC Hgb Hct MCV MCH MCHC RDW Plt Count MPV Neut % (Auto) Lymph % (Auto) [place] % (Auto) Eos % (Auto) Baso % (Auto) Nucleat RBC Rel Count Absolute Neuts (auto) Absolute Lymphs (auto) Absolute Monos (auto) Absolute Eos (auto) Absolute Basos (auto) Absolute Nucleated RBC Immature Gran % Immature Gran # PT 18.7 SEC H SEC (12.0-15.0) INR 1.55 H (0.83-1.16) APTT 35.7 SEC SEC (23.0-38.0) Sodium 136 mEq/L mEq/L (135-145) Potassium 3.9 mEq/L mEq/L (3.3-5.0) Chloride 104 mEq/L mEq/L (97-110) Carbon Dioxide 23 mEq/l mEq/l (22-31) Anion Gap 9 mEq/L mEq/L (6-14) BUN 17 mg/dL mg/dL (7-23) Creatinine 1.0 mg/dL mg/dL (0.7-1.3) Estimated GFR > 60 Glucose 124 mg/dL H mg/dL (70-100) Calcium 8.7 mg/dL mg/dL (8.5-10.4) Total Bilirubin 2.9 mg/dL H mg/dL (0.1-1.4) Conjugated Bilirubin 0.8 mg/dL H mg/dL (0.0-0.5) Unconjugated Bilirubin 2.1 mg/dL H mg/dL (0.0-1.1) AST 70 IU/L H IU/L (17-59) ALT 47 IU/L IU/L (21-72) Alkaline Phosphatase 152 IU/L H IU/L (38-126) Total Protein 7.4 g/dL g/dL (6.3-8.2) Albumin 3.3 g/dL L g/dL (3.5-5.0) Lipase 208 IU/L IU/L (23-300) Urine Color PALE YELLOW Urine Appearance CLEAR Urine pH 6.0 (5.0-7.5) Ur Specific [place] 1.006 (1.002-1.030) Urine Protein NEGATIVE (NEGATIVE) Urine Ketones NEGATIVE (NEGATIVE) Urine Blood NEGATIVE (NEGATIVE) Urine Nitrate NEGATIVE (NEGATIVE) Urine Bilirubin NEGATIVE (NEGATIVE) Urine Urobilinogen NEGATIVE EU EU (0.2-1.0) Ur Leukocyte Esterase NEGATIVE (NEGATIVE) Urine RBC NONE SEEN /hpf /hpf (0-3) Urine WBC 0-1 /hpf /hpf (0-3) Ur Epithelial Cells NONE SEEN /lpf /lpf (NONE-1+) Urine Mucus TRACE /lpf /lpf (NONE-1+) Urine Glucose NEGATIVE (NEGATIVE) 12/02/17 16:20 WBC 5.83 10^3/uL 10^3/uL (3.80-9.50) RBC 3.55 10^6/uL L 10^6/uL (4.40-6.38) Hgb 11.8 g/dL L g/dL (13.7-17.5) Hct 33.5 % L % (40.0-51.0) MCV 94.4 fL fL (81.5-99.8) MCH 33.2 pg pg (27.9-34.1) MCHC 35.2 g/dL g/dL (32.4-36.7) RDW 14.9 % % (11.5-15.2) Plt Count 100 10^3/uL L 10^3/uL (150-400) MPV 12.2 fL H fL (8.7-11.7) Neut % (Auto) 63.4 % % (39.3-74.2) Lymph % (Auto) 20.9 % % (15.0-45.0) [place] % (Auto) 11.1 % % (4.5-13.0) Eos % (Auto) 3.6 % % (0.6-7.6) Baso % (Auto) 0.7 % % (0.3-1.7) Nucleat RBC Rel Count 0.0 % % (0.0-0.2) Absolute Neuts (auto) 3.69 10^3/uL 10^3/uL (1.70-6.50) Absolute Lymphs (auto) 1.22 10^3/uL 10^3/uL (1.00-3.00) Absolute Monos (auto) 0.65 10^3/uL 10^3/uL (0.30-0.80) Absolute Eos (auto) 0.21 10^3/uL 10^3/uL (0.03-0.40) Absolute Basos (auto) 0.04 10^3/uL 10^3/uL (0.02-0.10) Absolute Nucleated RBC 0.00 10^3/uL 10^3/uL (0-0.01) Immature Gran % 0.3 % % (0.0-1.1) Immature Gran # 0.02 10^3/uL 10^3/uL (0.00-0.10) PT INR APTT Sodium Potassium Chloride Carbon Dioxide Anion Gap BUN Creatinine Estimated GFR Glucose Calcium Total Bilirubin Conjugated Bilirubin Unconjugated Bilirubin AST ALT Alkaline Phosphatase Total Protein Albumin Lipase Urine Color Urine Appearance Urine pH Ur Specific [place] Urine Protein Urine Ketones Urine Blood Urine Nitrate Urine Bilirubin Urine Urobilinogen Ur Leukocyte Esterase Urine RBC Urine WBC Ur Epithelial Cells Urine Mucus Urine Glucose Medications Given: Discontinued Medications Hydromorphone HCl (Dilaudid) 0.5 mg IVP EDNOW ONE Stop: 12/02/17 16:03 Last Admin: 12/02/17 16:21 Dose: 0.5 mg Ondansetron HCl (Zofran) 4 mg IVP EDNOW ONE Stop: 12/02/17 16:03 Last Admin: 12/02/17 16:21 Dose: 4 mg Departure - Departure Disposition: Home, Routine, Self-Care Clinical Impression: Abdominal pain Qualifiers: Abdominal location: unspecified location Qualified Code(s): R10.9 - Unspecified abdominal pain Condition: Fair Instructions: Morphine, Rapid Release (By mouth), Acute Abdominal Pain (ED) Referrals: Anyi Delgado PA [Primary Care Provider] - As per Instructions Prescriptions: morphINE IR [morphINE IR 15 mg (*)] 15 mg PO Q3-4PRN PRN #10 tab PRN Reason: Pain, Severe Ondansetron Odt [Zofran Odt 4 mg (RX)] 4 mg PO Q4 PRN #20 tab PRN Reason: Nausea & Vomiting
[2017-12-02 16:34] LABS: PLATELET COUNT 100 10^3/uL (150-400)
[2017-12-02 16:40] LABS: INR 1.55 (0.83-1.16); PROTIME(PATIENT) 18.7 SEC (12.0-15.0)
[2017-12-02] MEDS ORDERED: IOPAMIDOL (ISOVUE-300) 100 ML BTL ONE (16:56)
[2017-12-02 17:57] VITALS: BP 121/75
== END 2017-12-02 17:56 | disposition home or self-care (01) ==
DX: R10.31 Right lower quadrant pain (principal); K70.30 Alcoholic cirrhosis of liver without ascites; F10.21 Alcohol dependence, in remission; R91.1 Solitary pulmonary nodule; N20.0 Calculus of kidney
CPT/HCPCS: 96374; J1170; J2405; Q9967

== ENCOUNTER 2017-12-13 13:03 | Emergency (ER) | payer MEDICAID ==
[2017-12-13] MEDS ORDERED: NS 1,000 ML IV ONE (14:29)
[2017-12-13] MEDS ORDERED: ONDANSETRON 4 MG/2 ML VIAL IVP ONE (14:50)
[2017-12-13] MEDS ORDERED: HYDROmorphONE/DILAUDID 2 MG/ML INJ IVP ONE (14:50)
--- NOTE | 2017-12-13 14:59 | EDPHY ---
H & P Time Seen by Provider: 12/13/17 14:29 HPI/ROS: HPI Right-sided abdominal pain. 47-year-old male by private vehicle with his . This patient reports onset of right-sided lower quadrant abdominal pain sharp and aching onset time 12 noon. He was seen in our emergency department on December 02 for the same complaint. He had a negative CT scan of the abdomen and pelvis with IV contrast to evaluate for appendicitis at that time. He reports that his pain has been worsening since 12 noon. Last meal was at 9:30 a.m.. Last bowel movement last night. No bloody or melenic stool. No diarrhea. He denies any previous abdominal surgical history. He has had some nausea but no vomiting. ROS: Constitutional: No fever, no chills. No weakness. Eyes: No discharge. No changes in vision. ENT: No sore throat. No nasal congestion or rhinorrhea. Respiratory: No cough. No shortness of breath. Cardiac: No chest pain, no palpitations. Gastrointestinal: As above, no vomiting, no diarrhea. Genitourinary: No hematuria. No dysuria or increased frequency with urination. No testicular pain. Musculoskeletal: No back pain. No neck pain. No myalgias or arthralgias. Skin: No rashes. Neurological: No headache. No focal weakness or altered sensation. Past medical history: Alcoholic cirrhosis, acute kidney injury, recurrent a site ease, left lower extremity cellulitis, hyponatremia. Social history: Alcohol abuse. Denies IV drugs or street drugs. Here with his . Nonsmoker. Physical Exam: General Appearance: Alert, he appears uncomfortable but not in distress. This patient is responding to questions appropriately and in full sentences. This patient appears well-hydrated and well-nourished. Eyes: Pupils equal and round no pallor or injection. No lid edema, erythema or injection. Respiratory: There are no retractions, lungs are clear to auscultation with good air movement bilaterally. Cardiovascular: Regular rate and rhythm. No murmur. Gastrointestinal: Abdomen is soft with moderate focal tenderness of the right lower quadrant, no masses, bowel sounds normal. No Ag sign. Testicular exam: No clinical evidence of torsion. Neurological: Motor sensory function is grossly intact. Cranial nerves are normal. Gait is normal. Skin: Warm and dry, no rashes. Musculoskeletal: Neck is supple and nontender. Extremities are symmetrical. All joints range without pain or impingement. Psychiatric: No agitation. No depression. Database: EKG: Imaging: CT abdomen and pelvis with IV contrast: The appendix is well visualized and is normal. He is constipated. Otherwise no significant findings. Results were discussed with staff radiologist Dr. Dylan Zavala. Procedures: Emergency department course: IV placed. Triage vital signs reviewed and are normal. He was started on IV normal saline with 1 L to be given over the next hour. For pain he will initially be given 0.5 mg of IV hydromorphone and 4 mg of IV Zofran for nausea. 5:15 p.m., the patient was re-evaluated, resting comfortably at this time. Repeat abdominal exam is soft, nontender nondistended. I discussed the results of his CT scan and emergency department workup with him and his . Follow- up and return to emergency department precautions were reviewed with the 2 of them. He feels comfortable going home with his who will drive. All of their questions were answered. The patient was discharged home in good condition. Differential Diagnosis: The differential diagnosis on this patient includes but is not limited to appendicitis, constipation, volvulus, ureterolithiasis. This represents a partial list of diagnoses considered. These considerations are based on history , physical exam, past history, reassessment and diagnostic testing. Smoking Status: Never smoked Constitutional: Initial Vital Signs Temperature (C) 36.6 C 12/13/17 13:06 Heart Rate 79 12/13/17 13:06 Respiratory Rate 18 12/13/17 13:06 Blood Pressure 111/86 H 12/13/17 13:06 O2 Sat (%) 98 12/13/17 13:06 O2 Delivery Mode Room Air Allergies/Adverse Reactions: No Known Allergies Allergy (Verified 12/13/17 13:06) Home Medications: Medication Instructions Recorded Spironolactone 100 mg PO DAILY #30 tablet 09/06/17 Lasix 12/02/17 Ondansetron Odt [Zofran Odt 4 mg 4 mg PO Q4 PRN #20 tab 12/02/17 (RX)] morphINE IR [morphINE IR 15 mg (*)] 15 mg PO Q3-4PRN PRN #10 tab 12/02/17 Medical Decision Making - Diagnostics Imaging Results: Imaging Impressions Abdomen CT 12/13/17 14:51 Impression: 1. No CT findings for appendicitis. Constipation. 2. Cirrhosis, splenomegaly, varices, and minimal ascites, as seen previously. 2. Periumbilical abdominal wall hernia, stable in appearance. 4. Tiny nonobstructive calculus superior pole right kidney. No evidence for hydronephrosis. 5. Stable noncalcified nonspecific 11-mm pulmonary nodule right lower lobe. Recommend follow up as previous. 6. Mild chronic anterior wedge compression deformity of L1 vertebral body, stable in appearance. Degenerative disk and degenerative joint disease lower lumbar spine. Results called and discussed with Liliana Salazar M.D., on December 13, 2017 at 1625. E:[place]USTO/aisha - Data Points Laboratory Results: Laboratory Results 12/13/17 14:40 12/13/17 14:40 12/13/17 12/13/17 12/13/17 15:36 14:40 14:40 WBC 6.20 10^3/uL 10^3/uL (3.80-9.50) RBC 3.67 10^6/uL L 10^6/uL (4.40-6.38) Hgb 12.0 g/dL L g/dL (13.7-17.5) Hct 35.0 % L % (40.0-51.0) MCV 95.4 fL fL (81.5-99.8) MCH 32.7 pg pg (27.9-34.1) MCHC 34.3 g/dL g/dL (32.4-36.7) RDW 14.7 % % (11.5-15.2) Plt Count 123 10^3/uL L 10^3/uL (150-400) MPV 11.9 fL H fL (8.7-11.7) Neut % (Auto) 60.9 % % (39.3-74.2) Lymph % (Auto) 24.7 % % (15.0-45.0) [place] % (Auto) 10.0 % % (4.5-13.0) Eos % (Auto) 3.1 % % (0.6-7.6) Baso % (Auto) 0.8 % % (0.3-1.7) Nucleat RBC Rel Count 0.0 % % (0.0-0.2) Absolute Neuts (auto) 3.78 10^3/uL 10^3/uL (1.70-6.50) Absolute Lymphs (auto) 1.53 10^3/uL 10^3/uL (1.00-3.00) Absolute Monos (auto) 0.62 10^3/uL 10^3/uL (0.30-0.80) Absolute Eos (auto) 0.19 10^3/uL 10^3/uL (0.03-0.40) Absolute Basos (auto) 0.05 10^3/uL 10^3/uL (0.02-0.10) Absolute Nucleated RBC 0.00 10^3/uL 10^3/uL (0-0.01) Immature Gran % 0.5 % % (0.0-1.1) Immature Gran # 0.03 10^3/uL 10^3/uL (0.00-0.10) Sodium 134 mEq/L L mEq/L (135-145) Potassium 4.3 mEq/L mEq/L (3.3-5.0) Chloride 104 mEq/L mEq/L (97-110) Carbon Dioxide 21 mEq/l L mEq/l (22-31) Anion Gap 9 mEq/L mEq/L (6-14) BUN 19 mg/dL mg/dL (7-23) Creatinine 1.0 mg/dL mg/dL (0.7-1.3) Estimated GFR > 60 Glucose 101 mg/dL H mg/dL (70-100) Calcium 8.8 mg/dL mg/dL (8.5-10.4) Total Bilirubin 2.4 mg/dL H mg/dL (0.1-1.4) Conjugated Bilirubin 0.8 mg/dL H mg/dL (0.0-0.5) Unconjugated Bilirubin 1.6 mg/dL H mg/dL (0.0-1.1) AST 71 IU/L H IU/L (17-59) ALT 52 IU/L IU/L (21-72) Alkaline Phosphatase 195 IU/L H IU/L (38-126) Total Protein 7.9 g/dL g/dL (6.3-8.2) Albumin 3.6 g/dL g/dL (3.5-5.0) Lipase 221 IU/L IU/L (23-300) Urine Color YELLOW Urine Appearance CLEAR Urine pH 6.0 (5.0-7.5) Ur Specific [place] 1.019 (1.002-1.030) Urine Protein NEGATIVE (NEGATIVE) Urine Ketones NEGATIVE (NEGATIVE) Urine Blood NEGATIVE (NEGATIVE) Urine Nitrate NEGATIVE (NEGATIVE) Urine Bilirubin NEGATIVE (NEGATIVE) Urine Urobilinogen 4.0 EU H EU (0.2-1.0) Ur Leukocyte Esterase NEGATIVE (NEGATIVE) Urine RBC 1-3 /hpf /hpf (0-3) Urine WBC 1-3 /hpf /hpf (0-3) Ur Epithelial Cells NONE SEEN /lpf /lpf (NONE-1+) Hyaline Casts 1-5 /lpf /lpf (0-1) Urine Mucus TRACE /lpf /lpf (NONE-1+) Urine Glucose NEGATIVE (NEGATIVE) Medications Given: Discontinued Medications Hydromorphone HCl (Dilaudid) 0.5 mg IVP EDNOW ONE Stop: 12/13/17 14:51 Last Admin: 12/13/17 16:13 Dose: 0.5 mg Sodium Chloride (Ns) 1,000 mls @ 0 mls/hr IV EDNOW ONE; Wide Open PRN Reason: Protocol Stop: 12/13/17 14:30 Last Admin: 12/13/17 14:36 Dose: 1,000 mls Ondansetron HCl (Zofran) 4 mg IVP EDNOW ONE Stop: 12/13/17 14:51 Last Admin: 12/13/17 16:13 Dose: 4 mg Departure - Departure Disposition: Home, Routine, Self-Care Clinical Impression: Lower abdominal pain, Constipation Condition: Good Instructions: High Fiber Diet (ED), Constipation (ED) Additional Instructions: Read and follow provided instructions. Follow-up with your primary care physician in 1-2 days for re-evaluation. Drink magnesium citrate, entire bottle, at home near a bathroom for treatment of constipation. Return to the emergency department for worsening symptoms, worsening pain, vomiting, fever or other serious concerns. Referrals: Anyi Delgado PA [Primary Care Provider] - As per Instructions
[2017-12-13 15:22] LABS: PLATELET COUNT 123 10^3/uL (150-400)
[2017-12-13] MEDS ORDERED: IOPAMIDOL (ISOVUE-300) 150 ML BTL ONE (15:30)
[2017-12-13] MEDS ORDERED: MAGNESIUM CITRATE 300 ML BOTTLE PO ONE (17:23)
[2017-12-13 17:50] VITALS: BP 124/82
== END 2017-12-13 18:04 | disposition home or self-care (01) ==
DX: R10.31 Right lower quadrant pain (principal); K59.00 Constipation, unspecified; N20.0 Calculus of kidney; K43.9 Ventral hernia without obstruction or gangrene; E86.9 Volume depletion, unspecified
CPT/HCPCS: 96374; J1170; J2405; Q9967

== ENCOUNTER 2018-02-10 21:17 | Inpatient (IN) | payer MEDICAID ==
--- NOTE | 2018-02-10 22:05 | EDPHY ---
H & P Stated Complaint: c/o RLQ pain starting approx 1 hr area captain Time Seen by Provider: 02/10/18 22:05 HPI/ROS: HPI CHIEF COMPLAINT: Right-sided abdominal pain HISTORY OF PRESENT ILLNESS: Patient 48-year-old male, presents emergency room with abrupt onset of right-sided abdominal pain describes as sharp stabbing. Started suddenly at 9:00 pm. At night with associated nausea no vomiting. No diarrhea. Denies chest pain or shortness of breath. Denies fever. Was out to dinner and then this abruptly started. Describes as 10/10 sharp stabbing 1 focal area. Does not radiate to his back. Mainly in his right lower quadrant. No testicular pain. Denies urinary symptoms Past Medical History: Significant medical history for end-stage liver disease, alcoholism chronic kidney disease, history of kidney stone, ascites Past Surgical History: No recent surgery Social History: Denies drugs or tobacco. History of alcohol use Family History: Noncontributory ROS REVIEW OF SYSTEMS: 10 Systems were reviewed and negative with the exception of the elements mentioned in the history of present illness. Exam Constitutional nontoxic, triage nursing summary reviewed, vital signs reviewed , awake/alert. Eyes normal conjunctivae and sclera, EOMI, PERRLA. HENT normal inspection, atraumatic, moist mucus membranes, no epistaxis, neck supple/ no meningismus, no raccoon eyes. Respiratory clear to auscultation bilaterally, normal breath sounds, no respiratory distress, no wheezing. Cardiovascular rate normal, regular rhythm, no murmur, no edema, distal pulses normal. Gastrointestinal mild tender palpation right side abdomen no rebound, no guarding, normal bowel sounds, no distension, no pulsatile mass. Genitourinary no CVA tenderness. Musculoskeletal no midline vertebral tenderness, full range of motion, no calf swelling, no tenderness of extremities, no meningismus, good pulses, neurovascularly intact. Skin pink, warm, & dry, no rash, skin atraumatic. Neurologic awake, alert and oriented x 3, AAOx3, moves all 4 extremities equally, motor intact, sensory intact, CN II-XII intact, normal cerebellar, normal vision, normal speech. Psychiatric normal mood/affect. Heme/Lymph/Immune no lymphadenopathy. Differential Diagnosis: Differential diagnosis includes but is not limited to and in no particular order: Bowel obstruction, appendicitis, gallbladder disease, diverticulitis, colitis, enteritis, perforated viscus, gastritis, GERD , esophagitis, urinary tract infection, pyelonephritis, kidney stones Medical Decision Making: Plan for this patient IV establishment IV fluid bolus IV Dilaudid 1 mg for pain control IV Zofran for nausea CT scan abdomen pelvis with IV contrast to help delineate right-sided abdominal pain. Basic blood work , UA. Re-evaluate Re-evaluation: Serum alcohol level 251. Patient denies any medical history however review upon medical records includes end-stage liver disease, liver cirrhosis, alcoholism Patient denies drinking any alcohol tonight however serum alcohol level is 251. CT scan abdomen pelvis with IV contrast shows colitis ascending colon. Called to me by Dr. Zavala. IV Rocephin IV Flagyl ordered. Patient has right-sided abdominal pain. Patient is also noted be intoxicated with alcohol. 2338: Patient updated on plan with IV fluids, antibiotics. Plan for admission. Admit for colitis. I have consulted the hospitalist service Dr. Serrato agrees to admit. IV Rocephin and Flagyl ordered. IV fluids. Source: Patient - Personal History Tetanus Vaccine Date: <10 years - Medical/Surgical History Hx Asthma: No Hx Chronic Respiratory Disease: No Hx Diabetes: No Hx Cardiac Disease: No Hx Renal Disease: No Hx Cirrhosis: Yes Hx Alcoholism: Yes Hx HIV/AIDS: No Hx Splenectomy or Spleen Trauma: No Other PMH: Alcoholic cirrhosis, recurrent ascites, acute kidney injury, hyponatremia, LE cellulitis - Social History Smoking Status: Never smoked Constitutional: Initial Vital Signs Temperature (C) 36.3 C 02/10/18 21:35 Heart Rate 96 02/10/18 21:35 Respiratory Rate 18 02/10/18 21:35 Blood Pressure 149/97 H 02/10/18 21:35 O2 Sat (%) 100 02/10/18 21:35 O2 Delivery Mode Room Air Allergies/Adverse Reactions: No Known Allergies Allergy (Verified 02/10/18 21:39) Home Medications: Medication Instructions Recorded Spironolactone 100 mg PO DAILY #30 tablet 09/06/17 Lasix 12/02/17 Ondansetron Odt [Zofran Odt 4 mg 4 mg PO Q4 PRN #20 tab 12/02/17 (RX)] Medical Decision Making - Diagnostics Imaging Results: Imaging Impressions Abdomen CT 02/10/18 22:12 Impression: 1. Colitis in the ascending colon. 2. Paraumbilical hernia now with a loop of small bowel within it. 3. Evidence of cirrhosis, splenomegaly, varices, and minimal ascites unchanged. 4. Other chronic findings as above. Results called and discussed with Brain Zapata MD at 02/10/2018 23:25. - Data Points Laboratory Results: Laboratory Results 02/10/18 22:05 02/10/18 22:05 02/10/18 02/10/18 02/10/18 23:10 22:25 22:05 WBC RBC Hgb Hct MCV MCH MCHC RDW Plt Count MPV Neut % (Auto) Lymph % (Auto) [place] % (Auto) Eos % (Auto) Baso % (Auto) Nucleat RBC Rel Count Absolute Neuts (auto) Absolute Lymphs (auto) Absolute Monos (auto) Absolute Eos (auto) Absolute Basos (auto) Absolute Nucleated RBC Immature Gran % Immature Gran # PT INR APTT VBG Lactic Acid 1.6 mmol/L mmol/L (0.7-2.1) Sodium Potassium Chloride Carbon Dioxide Anion Gap BUN Creatinine Estimated GFR Glucose Calcium Total Bilirubin Conjugated Bilirubin Unconjugated Bilirubin AST ALT Alkaline Phosphatase Total Protein Albumin Lipase Urine Color YELLOW Urine Appearance HAZY Urine pH 5.0 (5.0-7.5) Ur Specific [place] 1.028 (1.002-1.030) Urine Protein NEGATIVE (NEGATIVE) Urine Ketones NEGATIVE (NEGATIVE) Urine Blood NEGATIVE (NEGATIVE) Urine Nitrate NEGATIVE (NEGATIVE) Urine Bilirubin NEGATIVE (NEGATIVE) Urine Urobilinogen NEGATIVE EU EU (0.2-1.0) Ur Leukocyte Esterase NEGATIVE (NEGATIVE) Urine Glucose NEGATIVE (NEGATIVE) Ethyl Alcohol 251 mg/dL H mg/dL (0-10) 02/10/18 02/10/18 02/10/18 22:05 22:05 22:05 WBC 8.43 10^3/uL 10^3/uL (3.80-9.50) RBC 3.61 10^6/uL L 10^6/uL (4.40-6.38) Hgb 12.2 g/dL L g/dL (13.7-17.5) Hct 35.1 % L % (40.0-51.0) MCV 97.2 fL fL (81.5-99.8) MCH 33.8 pg pg (27.9-34.1) MCHC 34.8 g/dL g/dL (32.4-36.7) RDW 13.4 % % (11.5-15.2) Plt Count 101 10^3/uL L 10^3/uL (150-400) MPV 11.4 fL fL (8.7-11.7) Neut % (Auto) 48.2 % % (39.3-74.2) Lymph % (Auto) 36.1 % % (15.0-45.0) [place] % (Auto) 9.6 % % (4.5-13.0) Eos % (Auto) 4.7 % % (0.6-7.6) Baso % (Auto) 0.9 % % (0.3-1.7) Nucleat RBC Rel Count 0.0 % % (0.0-0.2) Absolute Neuts (auto) 4.06 10^3/uL 10^3/uL (1.70-6.50) Absolute Lymphs (auto) 3.04 10^3/uL H 10^3/uL (1.00-3.00) Absolute Monos (auto) 0.81 10^3/uL H 10^3/uL (0.30-0.80) Absolute Eos (auto) 0.40 10^3/uL 10^3/uL (0.03-0.40) Absolute Basos (auto) 0.08 10^3/uL 10^3/uL (0.02-0.10) Absolute Nucleated RBC 0.00 10^3/uL 10^3/uL (0-0.01) Immature Gran % 0.5 % % (0.0-1.1) Immature Gran # 0.04 10^3/uL 10^3/uL (0.00-0.10) PT 17.5 SEC H SEC (12.0-15.0) INR 1.42 H (0.83-1.16) APTT 34.3 SEC SEC (23.0-38.0) VBG Lactic Acid Sodium 139 mEq/L mEq/L (135-145) Potassium 4.6 mEq/L mEq/L (3.5-5.2) Chloride 111 mEq/L H mEq/L (97-110) Carbon Dioxide 22 mEq/l mEq/l (22-31) Anion Gap 6 mEq/L mEq/L (6-14) BUN 14 mg/dL mg/dL (7-23) Creatinine 1.1 mg/dL mg/dL (0.7-1.3) Estimated GFR > 60 Glucose 101 mg/dL H mg/dL (70-100) Calcium 8.3 mg/dL L mg/dL (8.5-10.4) Total Bilirubin 2.0 mg/dL H mg/dL (0.1-1.4) Conjugated Bilirubin 0.7 mg/dL H mg/dL (0.0-0.5) Unconjugated Bilirubin 1.3 mg/dL H mg/dL (0.0-1.1) AST 62 IU/L H IU/L (17-59) ALT 40 IU/L IU/L (21-72) Alkaline Phosphatase 193 IU/L H IU/L (38-126) Total Protein 7.6 g/dL g/dL (6.3-8.2) Albumin 3.4 g/dL L g/dL (3.5-5.0) Lipase 268 IU/L IU/L (23-300) Urine Color Urine Appearance Urine pH Ur Specific [place] Urine Protein Urine Ketones Urine Blood Urine Nitrate Urine Bilirubin Urine Urobilinogen Ur Leukocyte Esterase Urine Glucose Ethyl Alcohol Medications Given: Hydromorphone HCl (Dilaudid) 0.4 mg IVP Q4HRS PRN PRN Reason: Pain, Severe Unable to Take PO Stop: 02/20/18 23:26 Last Admin: 02/11/18 00:54 Dose: 0.4 mg Sodium Chloride (Ns) 1,000 mls @ 100 mls/hr IV CONT NELL Stop: 08/09/18 23:29 Last Admin: 02/11/18 00:25 Dose: 1,000 mls Discontinued Medications Hydromorphone HCl (Dilaudid) 1 mg IVP EDNOW ONE Stop: 02/10/18 22:13 Last Admin: 02/10/18 22:16 Dose: 1 mg Hydromorphone HCl (Dilaudid) 1 mg IVP EDNOW ONE Stop: 02/10/18 23:19 Last Admin: 02/10/18 23:22 Dose: 1 mg Sodium Chloride (Ns) 1,000 mls @ 0 mls/hr IV EDNOW ONE; Wide Open PRN Reason: Protocol Stop: 02/10/18 22:07 Last Admin: 02/10/18 22:13 Dose: 1,000 mls Ceftriaxone Sodium 2 gm/ (Sodium Chloride) 50 mls @ 100 mls/hr IV EDNOW ONE PRN Reason: Protocol Stop: 02/10/18 23:48 Last Admin: 02/11/18 00:25 Dose: 50 mls Metronidazole/Sodium Chloride (Flagyl 500 Mg (Premix)) 100 mls @ 100 mls/hr IV EDNOW ONE PRN Reason: Protocol Stop: 02/11/18 00:18 Last Admin: 02/10/18 23:24 Dose: 100 mls Sodium Chloride (Ns) 1,000 mls @ 0 mls/hr IV ONCE ONE PRN Reason: Wide Open Stop: 02/10/18 23:26 Last Admin: 02/10/18 23:29 Dose: 1,000 mls Ondansetron HCl (Zofran) 4 mg IVP EDNOW ONE Stop: 02/10/18 22:13 Last Admin: 02/10/18 22:16 Dose: 4 mg Departure - Departure Disposition: [facility] Inpatient Acute Clinical Impression: Abdominal pain, Colitis, Alcohol intoxication Condition: Fair
[2018-02-10] MEDS ORDERED: NS 1,000 ML IV ONE ×2 (22:06→23:25)
[2018-02-10] MEDS ORDERED: ONDANSETRON 4 MG/2 ML VIAL IVP ONE (22:12)
[2018-02-10] MEDS ORDERED: HYDROmorphONE/DILAUDID 2 MG/ML INJ IVP ONE ×2 (22:12→23:18)
[2018-02-10 22:26] LABS: PLATELET COUNT 101 10^3/uL (150-400)
[2018-02-10] MEDS ORDERED: IOPAMIDOL (ISOVUE-300) 100 ML BTL ONE (22:46)
[2018-02-10 22:51] LABS: INR 1.42 (0.83-1.16); PROTIME(PATIENT) 17.5 SEC (12.0-15.0)
[2018-02-10] MEDS ORDERED: ONDANSETRON DISINTEGRATING 4 MG TAB PO PRN (23:25)
[2018-02-10] MEDS ORDERED: ACETAMINOPHEN 325 MG TAB PO PRN (23:25)
[2018-02-11] MEDS: NS 1,000 ML IV SCH ×2 (00:25→20:37)
--- NOTE | 2018-02-11 00:41 | PDGENHP ---
History and Physical - Chief Complaint Abdominal pain - History of Present Illness 48 yo M w/ hx of ETOH cirrhosis presents with abdominal pain. The patient tells me he had acute onset vomiting and abdominal pain around 9 PM this evening. The pain was 10/10 at its worst. He has been abstinent from alcohol since August of 2017 but had 4 beers tonight. He denies recent antibiotics, sick contacts, or ingestion of suspicious foods. He also denies diarrhea. In the ED his CT scan is notable for likely colitis in the ascending colon. His pain is much improved after pain medication and he has no other complaints. Records reviewed and summarized above; case discussed with ED physician Dr. Alvarado. History Information - Allergies/Home Medication List Allergies/Adverse Reactions: No Known Allergies Allergy (Verified 02/10/18 21:39) Home Medications: Lasix 12/02/17 [Last Taken Unknown] I have personally reviewed and updated: family history, medical history - Past Medical History Additional medical history: ETOH cirrhosis - Surgical History Reports: no pertinent surgical hx - Family History Positive for: cancer - Social History Smoking Status: Never smoked Review of Systems Review of Systems: ROS: 10pt was reviewed & negative except for what was stated in HPI & below Physical Exam Physical Exam: Temp Pulse Resp BP Pulse Ox 36.6 C 83 16 135/83 H 97 02/11/18 00:26 02/11/18 00:26 02/11/18 00:26 02/11/18 00:26 02/11/18 00:26 O2 (L/minute) 2 Constitutional: obese, uncomfortable Eyes: PERRL, EOMI Ears, Nose, Mouth, Throat: moist mucous membranes, no oral mucosal ulcers Cardiovascular: regular rate and rhythym, no murmur, rub, or gallop Respiratory: no respiratory distress, clear to auscultation Gastrointestinal: normoactive bowel sounds, soft, non-tender abdomen Skin: warm, normal color Musculoskeletal: full muscle strength, no muscle tenderness Neurologic: AAOx3, CN II-XII Intact Psychiatric: interacting appropriately, not anxious Lab Data & Imaging Review 02/10/18 22:05 02/10/18 22:05 WBC 8.43 10^3/uL (3.80-9.50) 02/10/18 22:05 RBC 3.61 10^6/uL (4.40-6.38) L 02/10/18 22:05 Hgb 12.2 g/dL (13.7-17.5) L 02/10/18 22:05 Hct 35.1 % (40.0-51.0) L 02/10/18 22:05 MCV 97.2 fL (81.5-99.8) 02/10/18 22:05 MCH 33.8 pg (27.9-34.1) 02/10/18 22:05 MCHC 34.8 g/dL (32.4-36.7) 02/10/18 22:05 RDW 13.4 % (11.5-15.2) 02/10/18 22:05 Plt Count 101 10^3/uL (150-400) L 02/10/18 22:05 MPV 11.4 fL (8.7-11.7) 02/10/18 22:05 Neut % (Auto) 48.2 % (39.3-74.2) 02/10/18 22:05 Lymph % (Auto) 36.1 % (15.0-45.0) 02/10/18 22:05 [place] % (Auto) 9.6 % (4.5-13.0) 02/10/18 22:05 Eos % (Auto) 4.7 % (0.6-7.6) 02/10/18 22:05 Baso % (Auto) 0.9 % (0.3-1.7) 02/10/18 22:05 Nucleat RBC Rel Count 0.0 % (0.0-0.2) 02/10/18 22:05 Absolute Neuts (auto) 4.06 10^3/uL (1.70-6.50) 02/10/18 22:05 Absolute Lymphs (auto) 3.04 10^3/uL (1.00-3.00) H 02/10/18 22:05 Absolute Monos (auto) 0.81 10^3/uL (0.30-0.80) H 02/10/18 22:05 Absolute Eos (auto) 0.40 10^3/uL (0.03-0.40) 02/10/18 22:05 Absolute Basos (auto) 0.08 10^3/uL (0.02-0.10) 02/10/18 22:05 Absolute Nucleated RBC 0.00 10^3/uL (0-0.01) 02/10/18 22:05 Immature Gran % 0.5 % (0.0-1.1) 02/10/18 22:05 Immature Gran # 0.04 10^3/uL (0.00-0.10) 02/10/18 22:05 PT 17.5 SEC (12.0-15.0) H 02/10/18 22:05 INR 1.42 (0.83-1.16) H 02/10/18 22:05 APTT 34.3 SEC (23.0-38.0) 02/10/18 22:05 VBG Lactic Acid 1.6 mmol/L (0.7-2.1) 02/10/18 22:25 Sodium 139 mEq/L (135-145) 02/10/18 22:05 Potassium 4.6 mEq/L (3.5-5.2) 02/10/18 22:05 Chloride 111 mEq/L (97-110) H 02/10/18 22:05 Carbon Dioxide 22 mEq/l (22-31) 02/10/18 22:05 Anion Gap 6 mEq/L (6-14) 02/10/18 22:05 BUN 14 mg/dL (7-23) 02/10/18 22:05 Creatinine 1.1 mg/dL (0.7-1.3) 02/10/18 22:05 Estimated GFR > 60 02/10/18 22:05 Glucose 101 mg/dL (70-100) H 02/10/18 22:05 Calcium 8.3 mg/dL (8.5-10.4) L 02/10/18 22:05 Total Bilirubin 2.0 mg/dL (0.1-1.4) H 02/10/18 22:05 Conjugated Bilirubin 0.7 mg/dL (0.0-0.5) H 02/10/18 22:05 Unconjugated Bilirubin 1.3 mg/dL (0.0-1.1) H 02/10/18 22:05 AST 62 IU/L (17-59) H 02/10/18 22:05 ALT 40 IU/L (21-72) 02/10/18 22:05 Alkaline Phosphatase 193 IU/L (38-126) H 02/10/18 22:05 Total Protein 7.6 g/dL (6.3-8.2) 02/10/18 22:05 Albumin 3.4 g/dL (3.5-5.0) L 02/10/18 22:05 Lipase 268 IU/L (23-300) 02/10/18 22:05 Urine Color YELLOW 02/10/18 23:10 Urine Appearance HAZY 02/10/18 23:10 Urine pH 5.0 (5.0-7.5) 02/10/18 23:10 Ur Specific [place] 1.028 (1.002-1.030) 02/10/18 23:10 Urine Protein NEGATIVE (NEGATIVE) 02/10/18 23:10 Urine Ketones NEGATIVE (NEGATIVE) 02/10/18 23:10 Urine Blood NEGATIVE (NEGATIVE) 02/10/18 23:10 Urine Nitrate NEGATIVE (NEGATIVE) 02/10/18 23:10 Urine Bilirubin NEGATIVE (NEGATIVE) 02/10/18 23:10 Urine Urobilinogen NEGATIVE EU (0.2-1.0) 02/10/18 23:10 Ur Leukocyte Esterase NEGATIVE (NEGATIVE) 02/10/18 23:10 Urine Glucose NEGATIVE (NEGATIVE) 02/10/18 23:10 Ethyl Alcohol 251 mg/dL (0-10) H 02/10/18 22:05 Imaging Review: Imaging Impressions Abdomen CT 02/10/18 22:12 Impression: 1. Colitis in the ascending colon. 2. Paraumbilical hernia now with a loop of small bowel within it. 3. Evidence of cirrhosis, splenomegaly, varices, and minimal ascites unchanged. 4. Other chronic findings as above. Results called and discussed with Brain Zapata MD at 02/10/2018 23:25. Assessment & Plan Assessment: 48 yo M w/ hx of ETOH cirrhosis presents with abdominal due to likely colitis. Plan: 1. Abdominal pain - Likely due to colitis seen in ascending colon on CT scan( personally reviewed/interpreted). His abdominal exam and laboratory work-up are reassuring including lactate and WBC. - Admit for observation - Observe off of antibiotics (s/p abx x1 in ED) - GI PCR if diarrhea develops, none currently - NPO, mIVF, ADAT - Pain control, anti-emetics PRN 2. ETOH Cirrhosis - With LFTs near previous baselines. - Monitor daily CMP - Counseled ETOH cessation 3. ETOH use disorder - Patient tells me he has been abstinent since August of 2017 but had 4 beers on night of admission. - Counseled ETOH cessation Diet - NPO, mIVF, ADAT Code - Full Ppx - SCDs Dispo - Admit under observation status
[2018-02-11] MEDS: HYDROmorphONE/DILAUDID 1 MG/ML INJ IVP PRN ×2 (00:54→09:14)
[2018-02-11 06:02] LABS: PLATELET COUNT 97 10^3/uL (150-400)
--- NOTE | 2018-02-11 14:59 | HOSPPROG ---
Hospitalist Progress Note Assessment/Plan: 48 year old male with pmh of alcoholic cirrhosis, reportedly clean since August, but drank "4 beers" yesterday admitted with Colitis. Colitis- CT reviewed by myself and showing fairly large area of inflammation of the ascending colon with associated fat stranding consistent with colitis. No leukocytosis, fever, or tachycardia, but patient with pain and nausea with po intake. does not feel like he take in enough to meet needs without becoming nauseated. pain improved to a 3/10 today. -IV saline -monitor for signs of infection, if develops add rocephin/flagyl alcoholic cirrhosis- takes lasix and aldactone. not taking adequate PO currently. will hold these Etoh abuse- patients Etoh was 251 after 4 beers per patient. Likely drinking more than he states. had mild transaminitis on arrival. He was seen in december for ab pain as well with mildly elevated transaminitis at that time. He said that he has not had a drink since August but thought that "light stuff" and beer would be okay. monitor for withdrawal Pulmonary nodule- 11mm nodule is stable from previous CT in December. monitor PPX- SCDs, heparin Fluids- IVNS Lytes- wnl Nutrition- clears Cor- Full Dispo- remain inpatient tonight. Subjective: pain better, down to a three. comes in "twinges". some mild nausea, not very hungry. Objective: Vital Signs Temp Pulse Resp BP Pulse Ox 36.4 C 94 16 116/73 100 02/11/18 11:56 02/11/18 11:56 02/11/18 11:56 02/11/18 11:56 02/11/18 11:56 Laboratory Results 02/11/18 05:39 02/11/18 05:39 02/10/18 02/11/18 02/12/18 05:59 05:59 05:59 Intake Total 2150 633 Balance 2150 633 PT 17.5 SEC (12.0-15.0) H 02/10/18 22:05 INR 1.42 (0.83-1.16) H 02/10/18 22:05 - Physical Exam Constitutional: no apparent distress, appears nourished, not in pain Eyes: PERRL, anicteric sclera, EOMI Ears, Nose, Mouth, Throat: moist mucous membranes, hearing normal, ears appear normal, no oral mucosal ulcers Cardiovascular: regular rate and rhythym, no murmur, rub, or gallop Respiratory: no respiratory distress, no rales or rhonchi, clear to auscultation Gastrointestinal: normoactive bowel sounds, tenderness, other (tenderness in RLQ ) Genitourinary: no bladder fullness, no bladder tenderness, no renal bruits Skin: no rashes or abrasions, no fluctuance, no induration Musculoskeletal: full muscle strength, no muscle tenderness, normal joint ROM Neurologic: AAOx3, sensation intact bilaterally Psychiatric: interacting appropriately, not anxious, not encephalopathic, thought process linear Lymph, Heme, Immunologic: no cervical LAD, no supraclavicular LAD ICD10 Worksheet Patient Problems: Problems Problem Status Onset Abdominal pain Acute Alcohol intoxication Acute Colitis Acute Anemia Acute Ascites Acute End stage liver disease Acute Renal insufficiency Acute
--- NOTE | 2018-02-11 15:30 | PDMN ---
Medical Necessity Medical necessity: [facility] [place]565 Inflammatory Bowel Disease A-2 days: 48 yo presents w/ acute abd pain and vomiting. Dx w/ colitis on CT. Initially OBS but meets [facility] IP criteria as pt requires additional MN for ongoing IVF and IV opioids for pain management. Hx ETOH cirrhosis. change to IP status 02/11/18@1501 per MD order.
[2018-02-11] MEDS: ONDANSETRON 4 MG/2 ML VIAL IVP PRN ×2 (16:35→20:30)
--- NOTE | 2018-02-11 17:23 | ASMTCMCOM ---
CM Note CM Note Notes: Case Management Chart Review for Discharge Support: Patient is a 48 year old male who presented to [facility] ED with abrupt onset of right sided abdominal pain. Medical history includes end state liver disease, alcoholism, chronic kidney disease, kidney stones, ascites. Patient admitted for treatment for colitis. Patient shares he had not consumed alcohol since August and drank 4 beers. CM met with patient, shared information on [facility], [facility], and asked if he would like any behavioral health & EtOH resources which he declined. Patient states this episode of drinking 'was a hiccup' Patient is connected to Primary Care with Anyi Delgado, feels comfortable to follow up with PCP. Patient lives at home with his parents, he expects to discharge tomorrow. CM to follow. D/C Plan: independent Date Signed: 02/11/2018 05:23 PM Electronically Signed By:Malika Luna
[2018-02-11] MEDS: PROMETHAZINE HCL 25 MG/ML INJ IVP PRN (22:35)
[2018-02-12] MEDS: HYDROmorphONE/DILAUDID 1 MG/ML INJ IVP PRN ×2 (01:44→08:25)
[2018-02-12] MEDS: ONDANSETRON 4 MG/2 ML VIAL IVP PRN ×2 (01:44→08:25)
[2018-02-12] MEDS: PROMETHAZINE HCL 25 MG/ML INJ IVP PRN (04:47)
[2018-02-12 06:35] LABS: PLATELET COUNT 104 10^3/uL (150-400)
--- NOTE | 2018-02-12 16:30 | HOSPPROG ---
Hospitalist Progress Note Assessment/Plan: 48 year old male with pmh of alcoholic cirrhosis, reportedly clean since August, drank the day of admission, admitted with colitis Colitis- CT reviewed by myself area of inflammation consistent with colitis. No leukocytosis, fever, or tachycardia, but patient with pain and nausea with po intake. I tried to get him up today as he lays in bed sleeping all day, advanced diet and stopped IV fluids. Patient drank some grape juice and said he did okay but says he is still nauseaed and does not want to try food. GI panel was rejected because his stool formed. His pain is entirely gone, per him, but he is still queezy. -PO fluids -monitor for signs of infection, if develops add rocephin/flagyl alcoholic cirrhosis- takes lasix and aldactone. not taking adequate PO currently. will hold these Umbilical hernia- had loop of bowel on CT. I was able to easily reduce it. monitor Etoh abuse- patients Etoh was 251 after 4 beers per patient. Likely drinking more than he states. had mild transaminitis on arrival. He was seen in december for ab pain as well with mildly elevated transaminitis at that time. He said that he has not had a drink since August but thought that "light stuff" and beer would be okay. monitor for withdrawal Pulmonary nodule- 11mm nodule is stable from previous CT in December. monitor PPX- SCDs, heparin Fluids- PO Lytes- wnl Nutrition- advance diet to regular Cor- Full Dispo- remain inpatient tonight, dc in am Subjective: pain gone, still some mild nausea Objective: Vital Signs Temp Pulse Resp BP Pulse Ox 37.2 C 94 16 135/94 H 99 02/12/18 12:00 02/12/18 12:00 02/12/18 12:00 02/12/18 12:00 02/12/18 12:00 Microbiology 02/11/18 19:10 Gastrointestinal Tract Panel (PCR) - Final Stool Laboratory Results 02/12/18 05:00 02/12/18 05:00 02/11/18 02/12/18 02/13/18 05:59 05:59 05:59 Intake Total 100 Balance 100 PT 17.5 SEC (12.0-15.0) H 02/10/18 22:05 INR 1.42 (0.83-1.16) H 02/10/18 22:05 - Physical Exam Constitutional: no apparent distress, appears nourished, not in pain Eyes: PERRL, anicteric sclera, EOMI Ears, Nose, Mouth, Throat: moist mucous membranes, hearing normal, ears appear normal, no oral mucosal ulcers Cardiovascular: regular rate and rhythym, no murmur, rub, or gallop Respiratory: no respiratory distress, no rales or rhonchi, clear to auscultation Gastrointestinal: normoactive bowel sounds, soft, non-tender abdomen, no palpable masses Genitourinary: no bladder fullness, no bladder tenderness, no renal bruits Skin: no rashes or abrasions, no fluctuance, no induration Musculoskeletal: full muscle strength, no muscle tenderness, normal joint ROM Neurologic: AAOx3, sensation intact bilaterally Psychiatric: interacting appropriately, not anxious, not encephalopathic, thought process linear Lymph, Heme, Immunologic: no cervical LAD, no supraclavicular LAD ICD10 Worksheet Patient Problems: Problems Problem Status Onset Abdominal pain Acute Alcohol intoxication Acute Colitis Acute Anemia Acute Ascites Acute End stage liver disease Acute Renal insufficiency Acute
[2018-02-13 11:35] LABS: INR 1.61 (0.83-1.16); PROTIME(PATIENT) 19.3 SEC (12.0-15.0)
[2018-02-13 12:27] VITALS: BP 128/73
[2018-02-13] MEDS ORDERED: SPIRONOLACTONE 50 MG TAB PO SCH (21:00)
[2018-02-13] MEDS ORDERED: FUROSEMIDE 20 MG TAB PO SCH (21:00)
--- NOTE | 2018-02-14 06:45 | GDS ---
DISCHARGE DIAGNOSES: 1. Acute colitis. 2. Alcohol cirrhosis. 3. Alcohol abuse. HISTORY: Pola is a 48-year-old male with known alcohol cirrhosis. He follows with Dr. Renteria. He has not had any alcohol since last August. On the day of admission, he went out with some coworkers a nd broke down and had several beverages, presenting with alcohol level of 251. His chief complaint was abdominal pain. CT scan showed colitis. He did not have any fever, leukocyt osis or tachycardia, just pain and nausea. He was treated conservatively and improved. On the day o f discharge, he had tolerated a hamburger for dinner. He never had any diarrhea or bloody stool. DISCHARGE MEDICATIONS: Please see computerized record for full detailed list. New medications: Non e. ADDITIONAL DISCHARGE INSTRUCTIONS: 1. Discontinue alcohol. 2. Follow up with Dr. Renteria. Greater than 30 minutes' time was spent arranging this discharge. Patient seen and examined by me on the day of discharge. /[id number]/MODL
== END 2018-02-13 17:08 | disposition home or self-care (01) | DRG 249 ==
LOC: F3E 02-11 00:21 → OBSVTOIN 02-11 15:01
PROVIDERS: ADMIT Student in an Organized Health Care Education/Training Program; ATTEND Internal Medicine
DX: K52.9 Noninfective gastroenteritis and colitis, unspecified (principal); K70.30 Alcoholic cirrhosis of liver without ascites; K72.90 Hepatic failure, unspecified without coma; E86.9 Volume depletion, unspecified; F10.220 Alcohol dependence with intoxication, uncomplicated; Y90.8 Blood alcohol level of 240 mg/100 ml or more; K42.9 Umbilical hernia without obstruction or gangrene; N18.9 Chronic kidney disease, unspecified; R91.1 Solitary pulmonary nodule; Z87.442 Personal history of urinary calculi
CPT/HCPCS: 96374; G0378; G0480; J0696; J1170; J2405; J2550; Q9967

== ENCOUNTER 2018-04-05 14:49 | Emergency (ER) | payer MEDICAID ==
--- NOTE | 2018-04-05 15:28 | EDPHY ---
H & P Time Seen by Provider: 04/05/18 15:27 HPI/ROS: CHIEF COMPLAINT: Abdominal pain HISTORY OF PRESENT ILLNESS: History of cirrhosis and ascites with previous paracentesis. No previous abdominal surgery. Presents with his parents stating he had about 3 hr of left-sided lower abdominal pain not associated with nausea vomiting or diarrhea. No recent injury or trauma no fever or chills and no urinary symptoms. Symptoms moderate to severe and worse with palpation or movement. Does not radiate. REVIEW OF SYSTEMS: Eye: no change in vision ENT: no sore throat Cardiac: no chest pain or syncope Pulmonary: no cough or SOB Abdomen: HPI Musculoskeletal: no back pain Skin: no rash Neuro: Mild headache Constitutional: no fever : no urinary symptoms A comprehensive 10 point review of systems is otherwise negative aside from elements mentioned in the history of present illness. PAST MEDICAL HISTORY: Includes cirrhosis and recurrent ascites and hyponatremia and recent admission for colitis Social history: Last alcohol just a few hours prior to arrival General Appearance: Alert and conversant, cooperative. Eyes: No scleral icterus. ENT, Mouth: Normal mucous membranes. Respiratory: Normal respiratory effort, breath sounds equal, lungs are clear to auscultation. Cardiovascular: Regular rate and rhythm. Gastrointestinal: Left lower and mid abdominal tenderness to palpation without rebound or guarding. Neurological: Alert, face symmetric, normal motor and sensory in extremities. Skin: Warm and dry, no rashes. Musculoskeletal: No peripheral edema. Psychiatric: Not agitated. Emergency Department course/MDM: Zofran 4 and fentanyl 100, CT scanning discussed and consented. Labs to include LFTs and lipase. Urinalysis ordered. 1644: CT shows trace ascites per Wickersham otherwise negative. 11mm known RLL nodule unchanged; followed until November 2019. 1756: Patient feels better, has minimal pain, no tenderness at this time. Results discussed with patient and family. Stable for discharge which is what the patient wants and I think that is reasonable. I specifically think that bacterial peritonitis would be unlikely at this time. 1833: Discussed with Dr. Marcano for Anyi Delgado for RLL nodule followup. Smoking Status: Never smoked Constitutional: Initial Vital Signs Temperature (C) 36.7 C 04/05/18 14:59 Heart Rate 90 04/05/18 14:59 Respiratory Rate 16 04/05/18 14:59 Blood Pressure 142/83 H 04/05/18 14:59 O2 Sat (%) 96 04/05/18 14:59 O2 Delivery Mode Room Air Allergies/Adverse Reactions: morphine Allergy (Verified 04/05/18 14:58) Home Medications: Medication Instructions Recorded Furosemide [Lasix 20 MG (*)] 40 mg PO HS 02/11/18 Spironolactone [Aldactone] 100 mg PO HS 02/11/18 Medical Decision Making - Diagnostics Imaging Results: Imaging Impressions Abdomen CT 04/05/18 16:00 Impression: 1. No definite etiology for patient's left lower quadrant pain. 2. Slight increase in ascites since the comparison. 3. Cirrhosis with sequela of portal hypertension including splenomegaly and varices. 4. Stable indeterminate right lower lobe nodule, for which follow up unenhanced chest CT is recommended in 3-6 months. Follow up for a period of two 2 years is recommended through November 2019, unless there is prior outside imaging to document stability of the finding. 5. Additional findings as above. Findings discussed with Dr. Wes Trevino on 04/05/2018 at 16:46. Imaging: Discussed imaging studies w/ chair maker Radiologist Differential Diagnosis: Differential considered including but not limited to colitis, bowel obstruction , bacterial peritonitis, intestinal perforation, renal colic - Data Points Laboratory Results: Laboratory Results 04/05/18 15:45 04/05/18 15:45 04/05/18 04/05/18 04/05/18 15:49 15:45 15:45 WBC 6.67 10^3/uL 10^3/uL (3.80-9.50) RBC 3.87 10^6/uL L 10^6/uL (4.40-6.38) Hgb 12.3 g/dL L g/dL (13.7-17.5) POC Hgb 13.6 gm/dL L gm/dL (13.7-17.5) Hct 37.4 % L % (40.0-51.0) POC Hct 40 % % (40-51) MCV 96.6 fL fL (81.5-99.8) MCH 31.8 pg pg (27.9-34.1) MCHC 32.9 g/dL g/dL (32.4-36.7) RDW 13.0 % % (11.5-15.2) Plt Count 125 10^3/uL L 10^3/uL (150-400) MPV 11.9 fL H fL (8.7-11.7) Neut % (Auto) 53.6 % % (39.3-74.2) Lymph % (Auto) 29.4 % % (15.0-45.0) Dillon % (Auto) 12.1 % % (4.5-13.0) Eos % (Auto) 3.9 % % (0.6-7.6) Baso % (Auto) 0.9 % % (0.3-1.7) Nucleat RBC Rel Count 0.0 % % (0.0-0.2) Absolute Neuts (auto) 3.57 10^3/uL 10^3/uL (1.70-6.50) Absolute Lymphs (auto) 1.96 10^3/uL 10^3/uL (1.00-3.00) Absolute Monos (auto) 0.81 10^3/uL H 10^3/uL (0.30-0.80) Absolute Eos (auto) 0.26 10^3/uL 10^3/uL (0.03-0.40) Absolute Basos (auto) 0.06 10^3/uL 10^3/uL (0.02-0.10) Absolute Nucleated RBC 0.00 10^3/uL 10^3/uL (0-0.01) Immature Gran % 0.1 % % (0.0-1.1) Immature Gran # 0.01 10^3/uL 10^3/uL (0.00-0.10) POC Sodium 142 mEq/L mEq/L (135-145) Sodium 137 mEq/L mEq/L (135-145) POC Potassium 3.4 mEq/L mEq/L (3.3-5.0) Potassium 3.7 mEq/L mEq/L (3.5-5.2) POC Chloride 102 mEq/L mEq/L (97-110) Chloride 104 mEq/L mEq/L (97-110) Carbon Dioxide 26 mEq/l mEq/l (22-31) POC Total CO2 26 mEq/L mEq/L (22-31) Anion Gap 7 mEq/L mEq/L (6-14) POC BUN 5 mg/dL L mg/dL (7-23) BUN 8 mg/dL mg/dL (7-23) Creatinine 0.7 mg/dL mg/dL (0.7-1.3) POC Creatinine 0.9 mg/dL mg/dL (0.7-1.3) Estimated GFR > 60 Glucose 119 mg/dL H mg/dL (70-100) POC Glucose 124 mg/dL H mg/dL (70-100) Calcium 7.7 mg/dL L mg/dL (8.5-10.4) Total Bilirubin 2.6 mg/dL H mg/dL (0.1-1.4) Conjugated Bilirubin 0.9 mg/dL H mg/dL (0.0-0.5) Unconjugated Bilirubin 1.7 mg/dL H mg/dL (0.0-1.1) AST 77 IU/L H IU/L (17-59) ALT 43 IU/L IU/L (21-72) Alkaline Phosphatase 246 IU/L H IU/L (38-126) Total Protein 7.6 g/dL g/dL (6.3-8.2) Albumin 3.4 g/dL L g/dL (3.5-5.0) Lipase 260 IU/L IU/L (23-300) Urine Color Urine Appearance Urine pH Ur Specific [place] Urine Protein Urine Ketones Urine Blood Urine Nitrate Urine Bilirubin Urine Urobilinogen Ur Leukocyte Esterase Urine Glucose Ethyl Alcohol 251 mg/dL H mg/dL (0-10) 04/05/18 15:31 WBC RBC Hgb POC Hgb Hct POC Hct MCV MCH MCHC RDW Plt Count MPV Neut % (Auto) Lymph % (Auto) Dillon % (Auto) Eos % (Auto) Baso % (Auto) Nucleat RBC Rel Count Absolute Neuts (auto) Absolute Lymphs (auto) Absolute Monos (auto) Absolute Eos (auto) Absolute Basos (auto) Absolute Nucleated RBC Immature Gran % Immature Gran # POC Sodium Sodium POC Potassium Potassium POC Chloride Chloride Carbon Dioxide POC Total CO2 Anion Gap POC BUN BUN Creatinine POC Creatinine Estimated GFR Glucose POC Glucose Calcium Total Bilirubin Conjugated Bilirubin Unconjugated Bilirubin AST ALT Alkaline Phosphatase Total Protein Albumin Lipase Urine Color AUDRA Urine Appearance CLEAR Urine pH 6.0 (5.0-7.5) Ur Specific [place] 1.016 (1.002-1.030) Urine Protein NEGATIVE (NEGATIVE) Urine Ketones NEGATIVE (NEGATIVE) Urine Blood NEGATIVE (NEGATIVE) Urine Nitrate NEGATIVE (NEGATIVE) Urine Bilirubin NEGATIVE (NEGATIVE) Urine Urobilinogen 4.0 EU H EU (0.2-1.0) Ur Leukocyte Esterase NEGATIVE (NEGATIVE) Urine Glucose NEGATIVE (NEGATIVE) Ethyl Alcohol Medications Given: Discontinued Medications Fentanyl (Sublimaze) 100 mcg IVP EDNOW ONE Stop: 04/05/18 15:35 Last Admin: 04/05/18 15:45 Dose: 100 mcg Sodium Chloride (Ns) 1,000 mls @ 0 mls/hr IV EDNOW ONE; Wide Open PRN Reason: Protocol Stop: 04/05/18 15:35 Last Admin: 04/05/18 15:44 Dose: 1,000 mls Ondansetron HCl (Zofran) 4 mg IVP EDNOW ONE Stop: 04/05/18 15:35 Last Admin: 04/05/18 15:44 Dose: 4 mg Point of Care Test Results: Chemistry 04/05/18 15:49 POC Sodium 142 mEq/L mEq/L (135-145) POC Potassium 3.4 mEq/L mEq/L (3.3-5.0) POC Chloride 102 mEq/L mEq/L (97-110) POC Total CO2 26 mEq/L mEq/L (22-31) POC BUN 5 mg/dL L mg/dL (7-23) POC Creatinine 0.9 mg/dL mg/dL (0.7-1.3) POC Glucose 124 mg/dL H mg/dL (70-100) ISTAT H&H 04/05/18 15:49 POC Hgb 13.6 gm/dL L gm/dL (13.7-17.5) POC Hct 40 % % (40-51) Departure - Departure Disposition: Home, Routine, Self-Care Clinical Impression: Alcohol intoxication Qualifiers: Complication of substance-induced condition: uncomplicated Qualified Code(s): F10.920 - Alcohol use, unspecified with intoxication, uncomplicated Abdominal pain Qualifiers: Abdominal location: left lower quadrant Qualified Code(s): R10.32 - Left lower quadrant pain Condition: Good Instructions: Acute Abdominal Pain (ED) Referrals: Anyi Delgado PA [Primary Care Provider] - As per Instructions
[2018-04-05] MEDS ORDERED: NS 1,000 ML IV ONE (15:34)
[2018-04-05] MEDS ORDERED: ONDANSETRON 4 MG/2 ML VIAL IVP ONE (15:34)
[2018-04-05] MEDS ORDERED: fentaNYL 100 MCG/2 ML INJ IVP ONE (15:34)
[2018-04-05 15:56] LABS: PLATELET COUNT 125 10^3/uL (150-400)
[2018-04-05] MEDS ORDERED: IOPAMIDOL (ISOVUE-300) 100 ML BTL ONE (16:05)
[2018-04-05 18:11] VITALS: BP 126/65
== END 2018-04-05 18:11 | disposition home or self-care (01) ==
DX: F10.920 Alcohol use, unspecified with intoxication, uncomplicated (principal); R10.32 Left lower quadrant pain
CPT/HCPCS: 82435-PO; 82565-PO; 82947-PO; 84132-PO; 84295-PO; 84520-PO; 85014-ER; 96374; G0480; J2405; J3010; Q9967